=== PATIENT | female | born 1985 | race Caucasian/White ===

== ENCOUNTER 2023-06-22 22:16 | Outpatient (REF) | payer OTHER, SELFPAY ==
[2023-06-28 19:07] LABS: Age Gdln ACOG Testing Note (.); HPV Aptima Negative (Negative); IGP, Aptima HPV, rfx 16/18,45 Note (.)
== END 2023-06-22 22:17 | disposition home or self-care (01) ==
LOC: LAB 22:16
PROVIDERS: Visit Provider Physician Assistant
DX: Z01.419 Encounter for gynecological examination (general) (routine) without abnormal findings (principal)
CPT/HCPCS: 87624; G0145

== ENCOUNTER 2023-07-06 09:00 | Outpatient (OUT) | payer OTHER, SELFPAY ==
--- NOTE | 2023-07-06 09:01 | US_ITS ---
The [address] [address] Patient Name: MARIA FERNANDA GONZALEZ MRN: [id number] date: 1985 Sex: F Assigned Patient Location: [facility] Current Patient Location: [facility] Accession/Order Number: [id number] Exam Date: 07/06/2023 09:02 Report Date: 07/06/2023 10:12 At the request of: TAMIKO PINEDA Procedure: US pelvis w/ transvaginal EXAMINATION: US pelvis w/ transvaginal HISTORY: MENORRHAGIA COMPARISON: No relevant comparison available. FINDINGS: Transabdominal and transvaginal images The uterus is normal in size measuring 8.7 x 4.0 x 5.7 cm. Anteverted, anteflexed. Identified in the left fundal myometrium is a 1.8 x 1.5 x 1.0 cm area of hypoechogenicity Endometrium measures 4 mm, normal. Area of hypoechogenicity in the cervix measuring 0.9 cm, avascular, a cyst is favored. The right ovary is normal measuring 2.4 x 1.7 x 2.7 cm. Normal color and Doppler flow. The left ovary is normal measuring 2.6 x 2.0 x 1.8 cm. Normal color and Doppler flow. No free fluid US/US pelvis w/ transvaginal IMPRESSION: 1.8 cm posterior myometrial mass. A fibroid is favored 0.9 cm complex cyst of the cervix No explanation for the patient's menorrhagia Electronically authenticated by: DELBERT CORRALES Date: 07/06/2023 10:12
== END 2023-07-06 09:01 | disposition home or self-care (01) ==
LOC: NOMS 09:00
PROVIDERS: Visit Provider Physician Assistant
DX: N92.1 Excessive and frequent menstruation with irregular cycle (principal); R19.09 Other intra-abdominal and pelvic swelling, mass and lump; N88.8 Other specified noninflammatory disorders of cervix uteri
CPT/HCPCS: 76830; 76856

== ENCOUNTER 2023-07-20 07:05 | Outpatient (OUT) | payer SELFPAY ==
--- OUTSIDE RECORDS SUMMARY | 2023-07-25 07:08 | XMS_ITS ---
Patient Summarization (C-CDA 2.1 CCD) Created on: July 25, 2023 MARIA FERNANDA GONZALEZ : 1985 Sex: Female Author Organization Sample organization Care Team Providers Care Program Proposals Coordinator Name Role Phone TAMIKO PINEDA Attending Unavailable WESLEY SOLIS Attending Unavailable Irma, Wesley Attending Provider [phone] Wesley Solis Attending Unavailable Wesley Solis Admitting Unavailable Encounters Encounter Date Encounter Type Care Provider Facility Start: 07-20-2023 End: 07-20-2023 ambulatory WESLEY SOLIS Not Available Start: 07-20-2023 End: 07-20-2023 Departed Referred Wesley Solis Work Phone: [facility] Start: 06-22-2023 End: 06-22-2023 ambulatory TAMIKO PINEDA Not Available Payers Date Payer Category Payer Self-pay 2020 Private Health Insurance [id number] 1985 Unknown [id number] 2.16.84 [id number] 1985 Unknown [id number] 2.16.84 [id number] Unknown [id number] 2.16.8 [id number] Results Test Name Value Interpretation Reference Range Facil ity Joe 07-20-2023 L Specimen: [id number] Received: 07/21/23 Status: JOCY Ortega Num: [id number] Spec Type: Surgical Subm Dr: Wesley Solis Tissues: A Endometrium - Biopsy (EMBX) Procedures: HE/2, Gross/Micro L4 Age/ Patient Sex Location Account Attending Physician Maria Fernanda Gonzalez 38/F [place] [id number] Wesley Solis SPEC NUM: [id number] RECD: 07/21/23 STATUS: JOCY DE LOS SANTOSFreddy NUM: [id number] BILL: 07/20/23- SUBM DR: Wesley Solis ENTERED: 07/21/23 [facility] DR: Marilynn Huertas SPEC TYPE: Surgical DEPT: JERZY CASTRO ORDERED: HE/2, Gross/Micro L4 ORDERED: HE/2, Gross/Micro L4 Pathological Diagnosis Endometrial biopsy: - No diagnostic tissue identified, see the gross description Gross Description Specimen is labeled endometrial biopsy. No visible specimen. Container is filtered in 1 cassette. CPT Codes 97204 -------- -------- Specimen: [id number] Received: 07/21/23 Status: JOCY Jordna Num: [id number] Spec Type: Surgical Subm Dr: Wesley Solis Tissues: A Endometrium - Biopsy (EMBX) Procedures: HE/2, Gross/Micro L4 -------- Patient: Maria Fernanda Gonzalez [id number] (Continued) -------- Signed (signature on file) Tim Helton MD 07/22/23 1624 Normal [facility] Social History Date Type Detail Facility Start: 1985 Sex Assigned At Female F [facility] Tobacco smoking stat us [facility]IS Unknown if ever smoked [facility] Work Phone: Evaluation note Note Date & Type Note Facility Evaluation note No assessment information availa ble [facility] Work Phone: Summary Purpose Family History No Family History Records FoundNo Family History Records Found Advance Directives No Advanced Directives Records Found Advance Directive Response Recorded Date/ Time Advance Directives No July 20 11:51am Additional Source Comments INFORMATION SOURCE (unrecogn ized section and content) DATE CREATED AUTHOR 07/21/2023 [facility] dical Specialists EPIC DATE CREATED AUTHOR AUTHOR'S KATERIN ATION 07/23/2023 [facility] ysician Group Care Teams (unrecognized sec tion and content) Team Status: Inactive Member Role Status Dates Wesley Solis Attending Provider Active Start: Rajan gonzalez 2023 End: July 20, 2023 Goals (unrecognized section and content) Goals may be documented in a n alternate section FOR RECORDS PERTAINING TO PATIENTS WHO ARE OR HAVE BEEN ENROLLED IN A CHEMICAL DEPENDENCY/SUBSTANCEABUSE PROGRAM, SOME INFORMATION MAY BE OMITTED. This clinical summary was aggregated from multiple sources. Caution should be exercised in using it in the provision of clinical care. This summary normalizes information from multiple sources, and as a consequence, information in this document may materially change the coding, format and clinical context of patient data. In addition, data may be omitted in some cases. CLINICAL DECISIONS SHOULD BE BASED ON THE PRIMARY CLINICAL RECORDS. [facility] [employer] [facility]. provides no warranty or guarantee of the accuracy or completeness of information in this document.
== END 2023-07-20 07:06 ==
LOC: LAB 07-25 07:06
PROVIDERS: Visit Provider Obstetrics & Gynecology
DX: N92.0 Excessive and frequent menstruation with regular cycle (principal)
CPT/HCPCS: 88305

== ENCOUNTER 2023-08-10 09:02 | Outpatient (OUT) | payer OTHER, SELFPAY ==
--- OUTSIDE RECORDS SUMMARY | 2023-08-10 09:07 | XMS_ITS | CCD ---
Author Organization [facility] CliniSyct Care Team Providers Care Manager Of Training And Development Name Role Phone TAMIKO PINEDA Attending Unavailable WESLEY SOLIS Attending Unavailable Wesley Solis Attending Provider Wesley Solis Attending Unavailable Wesley Solis Admitting Unavailable Results Test Name Value Interpretation Reference Range Facil ity Joe 07-20-2023 L Specimen: [id number] Received: 07/21/23 Status: JOCY Arriaza Num: [id number] Spec Type: Surgical Subm Dr: Wesley Solis Tissues: A Endometrium - Biopsy (EMBX) Procedures: HE/2, Gross/Micro L4 Age/ Patient Sex Location Account Attending Physician Maria Fernanda Gonzalez 38/F [place] [id number] Wesley Solis SPEC NUM: [id number] RECD: 07/21/23 STATUS: JOCY ARRIAZA NUM: [id number] BILL: 07/20/23- SUBM DR: Wesley Solis ENTERED: 07/21/23 [facility] : [facility] SPEC TYPE: Surgical DEPT: JERZY CASTRO ORDERED: HE/2, Gross/Micro L4 ORDERED: HE/2, Gross/Micro L4 Pathological Diagnosis Endometrial biopsy: - No diagnostic tissue identified, see the gross description Gross Description Specimen is labeled endometrial biopsy. No visible specimen. Container is filtered in 1 cassette. CPT Codes 19956 -------- -------- Specimen: [id number] Received: 07/21/23-1237 Status: JOCY Arriaza Num: [id number] Spec Type: Surgical Subm Dr: Wesley Solis Tissues: A Endometrium - Biopsy (EMBX) Procedures: HE/2, Gross/Micro L4 -------- Patient: Maria Fernanda Gonzalez [id number] (Continued) -------- Signed (signature on file) Tim Helton MD 07/22/23 1624 Normal [facility] Encounters Encounter Date Encounter Type Care Provider Facility Start: 07-20-2023 End: 07-20-2023 ambulatory WESLEY SOLIS Not Available Start: 07-20-2023 End: 07-20-2023 Departed Referred Wesley Solis Work Phone: [facility] Start: 06-22-2023 End: 06-22-2023 ambulatory TAMIKO PINEDA Not Available Payers Date Payer Category Payer Self-pay 2020 Private Health Insurance [id number] 1985 Unknown [id number] 2.16.84 [id number] 1985 Unknown [id number] 2.16.84 [id number] Unknown [id number] 2.16.8 [id number] Social History Date Type Detail Facility [facility] Work Phone: Start: 1985 Sex Assigned At Female F [facility] Evaluation note Note Date & Type Note Facility Evaluation note No assessment information availa ble [facility] Work Phone: Summary Purpose Family History No Family History Records FoundNo Family History Records Found Advance Directives No Advanced Directives Records Found Advance Directive Response Recorded Date/ Time Advance Directives No July 20 11:51am Additional Source Comments INFORMATION SOURCE (unrecogn ized section and content) DATE CREATED AUTHOR 07/21/2023 [facility] dical Specialists EPIC DATE CREATED AUTHOR AUTHOR'S ORGANIZ ATION 07/23/2023 [facility] ysician Group Care Teams (unrecognized sec tion [...] BE BASED ON THE PRIMARY CLINICAL RECORDS. [employer] [facility]. provides no warranty or guarantee of the accuracy or completeness of information in this document.
== END 2023-08-10 09:03 | disposition home or self-care (01) ==
LOC: PST 09:03
PROVIDERS: Visit Provider Obstetrics & Gynecology
DX: Z01.818 Encounter for other preprocedural examination (principal); Z30.2 Encounter for sterilization; N92.1 Excessive and frequent menstruation with irregular cycle; R10.2 Pelvic and perineal pain; N93.9 Abnormal uterine and vaginal bleeding, unspecified

== ENCOUNTER 2023-08-19 08:09 | Day surgery (SDC) | payer OTHER, SELFPAY ==
[2023-08-10 09:12] VITALS: BP 112/74; PULSE 95; TEMP 36.3; O2SAT 96; BMI 28.0
[2023-08-19] VITALS (10 sets, daily range): BP systolic 116–135; BP diastolic 71–88; PULSE 59–99; TEMP 36.3–36.8; O2SAT 96–100; BMI 28.0
--- OUTSIDE RECORDS SUMMARY | 2023-08-19 08:13 | XMS_ITS | CCD ---
Author Organization [facility] CliniSyin Care Team Providers Care Transportation Department Head Name Role Phone TAMIKO PINEDA Attending Unavailable WESLEY SOLIS Attending Unavailable Wesley Solis Attending Provider [phone] Wesley Solis Attending Unavailable Wesley Solis Admitting Unavailable Results Test Name Value Interpretation Reference Range Facil ity Joe 07-20-2023 L Specimen: [id number] Received: 07/21/23 Status: JOCY Arriaza Num: [id number] Spec Type: Surgical Subm Dr: Wesley Solis Tissues: A Endometrium - Biopsy (EMBX) Procedures: HE/2, Gross/Micro L4 Age/ Patient Sex Location Account Attending Physician Maria Fernanda Gonzalez 38/F [place] [id number] Wesley Solis SPEC NUM: [id number] RECD: 07/21/23 STATUS: JOCY ARRIAZA NUM: [id number] BILL: 07/20/23- SUBM DR: Wesley Solis ENTERED: 07/21/23 [facility] : [facility] SPEC TYPE: Surgical DEPT: JERZY CASTRO ORDERED: HE/2, Gross/Micro L4 ORDERED: HE/2, Gross/Micro L4 Pathological Diagnosis Endometrial biopsy: - No diagnostic tissue identified, see the gross description Gross Description Specimen is labeled endometrial biopsy. No visible specimen. Container is filtered in 1 cassette. CPT Codes 29631 -------- -------- Specimen: [id number] Received: 07/21/23-1237 Status: JOCY Arriaza Num: [id number] Spec Type: Surgical Subm Dr: Wesley Solis Tissues: A Endometrium - Biopsy (EMBX) Procedures: HE/2, Gross/Micro L4 -------- Patient: Maria Fernanda Gonzalez [id number] (Continued) -------- Signed (signature on file) Tim Helton MD 07/22/23 1624 Normal [facility] Encounters Encounter Date Encounter Type Care Provider Facility Start: 07-20-2023 End: 07-20-2023 ambulatory WESLEY SOLIS Not Available Start: 07-20-2023 End: 07-20-2023 Departed Referred Wesley Solis Work Phone: [facility] Start: 06-22-2023 End: 06-22-2023 ambulatory TAMIKO PINEDA Not Available Payers Date Payer Category Payer Self-pay 2020 Private Health Insurance [id number] 1985 Unknown [id number] 2.16.84 [id number] 1985 Unknown [id number] 2.16.84 [id number] Unknown [id number] 2.16.8 [id number] Social History Date Type Detail Facility Tobacco smoking stat [facility] Unknown if ever smoked [facility] Work Phone: Start: 1985 Sex Assigned At Female F [facility] Evaluation note Note Date & Type Note Facility Evaluation note No assessment information availa ble [facility] Work Phone: Summary Purpose Family History No Family History Records FoundNo Family History Records Found Advance Directives No Advanced Directives Records Found Advance Directive Response Recorded Date/ Time Advance Directives No July 20 11:51am Additional Source Comments INFORMATION SOURCE (unrecogn ized section and content) DATE CREATED AUTHOR 07/21/2023 [facility] dical Specialists EPIC DATE CREATED AUTHOR AUTHOR'S ORGANIZ ATION 07/23/2023 The [facility] ysician Group Care Teams (unrecognized sec tion [...] BE BASED ON THE PRIMARY CLINICAL RECORDS. [employer] [facility]. provides no warranty or guarantee of the accuracy or completeness of information in this document.
[2023-08-19 08:19] LABS: Basophils Absolute Auto 0.1 10^3/uL (0.0-0.1); Basophils Percent Auto 0.8 % (0.2-2.0); Eosinophils Absolute Auto 0.2 10^3/uL (0.0-0.7); Eosinophils Percent Auto 2.1 % (0.9-7.0); Hematocrit 40.4 % (36.0-48.0); Hemoglobin 12.8 g/dL (12.0-16.0); Immature Granulocytes Abs Auto 0.03 10^3/uL (0.00-0.03); Immature Granulocytes Pct Auto 0.3 % (0.0-0.5); Lymphocytes Absolute Auto 2.3 10^3/uL (1.2-3.8); Mean Corpuscular HGB Conc 31.7 g/dL (29.9-35.2); Mean Corpuscular Hemoglobin 26.6 pg (26.7-34.0); Mean Corpuscular Volume 83.8 fL (81.0-99.0); Mean Platelet Volume 9.4 fL (9.5-13.5); Monocytes Absolute Auto 1.1 10^3/uL (0.3-0.8); Monocytes Percent Auto 12.6 % (1.7-12.0); Neutrophils Absolute Auto 4.9 10^3/uL (1.4-6.5); Neutrophils Percent Auto 57.2 % (43.0-75.0); Platelet Count 326 10^3/uL (150-450); Red Blood Count 4.82 10^6/uL (4.20-5.40); Red Cell Distribution Width 12.9 % (11.0-15.0); White Blood Count 8.6 10^3/uL (4.0-11.0)
[2023-08-19 08:41] LABS: HCG Quantitative <1 mIU/mL
[2023-08-19] MEDS: LACTATED RINGER'S SOLUTION 1,000 ML 50 ML IV ×2 (08:49→10:42)
--- NOTE | 2023-08-19 10:41 | P.ON_ITS ---
Brief Operative Note Date of procedure: 08/19/23 Pre-op diagnosis general: menorrhagia, desires permanent sterilization Post-op diagnosis: other (fundal uterine fibroid approximately 3cm in size) Procedure: NAME OF PROCEDURE: Laparoscopic bilateral salpingectomy, with Brooklyn endometrial ablation with hysteroscopy , endometrial bx performed prior to ablation using a pipette. PROCEDURE: The patient was taken back to the OR where she was prepped and draped in the normal sterile fashion after being placed in the dorsal lithotomy position, after being placed under general anesthesia without difficulty. a weighted speculum was then placed into the vagina. Pap and endometrial bx were performed without difficultyThe anterior lip was grasped with a single tooth tenaculum. The patient was then sounded to approximatley 9cm. The patient was gently sounded using Hegar dilators and the hysteroscope was passed through the cervix into the uterus where both ostia were seen. No gross evidence of polyps, fibroids or malignancy. The cervical length was noted to be 4cm. The Brooklyn ablation apparatus was set to approximately 5cm in length. This was placed in through the cervix and into the uterus. After the seal was tested, at that time the total ablation of 120 seconds was performed with the Brooklyn without difficulty. All instruments were removed from the vagina. Pipette was used to obtain bx of endometrial tissue A wet sponge stick was placed into the patient's vagina. Attention was then turned to the patient's abdomen, where a scalpel was used to make a small infraumbilical incision. The S retractors were then used to dissect the underlying layers until the fascia could be seen. The fascia was then grasped with Lilia clamps and tented up. A knife was then used to make a small incision to the fascia. The muscle was identified, at that time two sutures of #0 Vicryl on a GI needle was then used and placed through the fascia. The peritoneum was then identified and entered bluntly. The 10-4 Chi was then placed into the patient's abdomen. This was confirmed with direct visualization of the bowel, using the laparoscope. The patient's abdomen was then insufflated using approximately 4 liters of CO2 gas. Survey of the patient's abdomen demonstrated normal appearing ovaries, uterus and tubes. A second port was then placed laterally after incision was made in the skin under direct visualization. The patient's tube on the patient's right side was identified. Then the filschie clip was placed on the ampullar region of the tube.? Excellent hemostasis was noted. ?This was performed on the contralateral sideas well. The lateral ports were then moved under direct visualization with excellent hemostasis. The abdomen was deinsufflated. All instruments were removed from the patient's abd omen. The fascia was closed using the #0 Vicryl on GI needle. The skin was closed using 4-0 Vicryl subcuticularly. All instruments were removed from the patient's vagina as well. The patient was taken out of the dorsal lithotomy position and placed in the supine position and taken to recovery in stable condition. Sponge, lap and needle counts were correct x2. ??? Anesthesia: JORGE Surgeon: Rey Solis Audio Visual Coordinator: Safia Mena Estimated blood loss (mL): 5 Pathology: other (endometrial currettings) Condition: stable Disposition: PACU Urinary Catheter Management Urinary Catheter Management Urethral: Cath placed during this visit: no
--- NOTE | 2023-08-19 11:58 | PC.NURSE ---
Up to bathroom and voids clear yellow; peripad dry
== END 2023-08-19 12:00 | disposition home or self-care (01) ==
PROVIDERS: Visit Provider Obstetrics & Gynecology
PROC: (CPT 851; principal; 2023-08-19 09:35)
DX: Z30.2 Encounter for sterilization (principal); N92.1 Excessive and frequent menstruation with irregular cycle; R10.2 Pelvic and perineal pain; N93.9 Abnormal uterine and vaginal bleeding, unspecified
CPT/HCPCS: 58100; 58563; 58671; 36415; 84702; 85025; 88305; J1100; J1885; J2250; J2405; J2704; J2710; J3010

== ENCOUNTER 2023-11-29 18:25 | Emergency (ER) | payer OTHER, SELFPAY ==
--- OUTSIDE RECORDS SUMMARY | 2023-11-29 18:38 | XMS_ITS | CCD ---
Author Organization [facility] Care Team Providers Care Transportation Security Screener Name Role Phone Wesley Solis Attending Provider Irma, Wesley Admitting Unavailable Irma, Wesley Attending Unavailable Irma, Wesley Attending Unavailable Irma, Wesley Admitting Unavailable EDWIN, TAMIKO Attending Unavailable IRMA, WESLEY Attending Unavailable IRMA, WESLEY Attending Unavailable EDWIN, TAMIKO Attending Unavailable Results Test Name Value Interpretation Reference Range Facil ity Joe 08-19-2023 L Specimen: [id number] Received: 08/19/23 Status: JOCY Arriaza Num: [id number] Spec Type: Surgical Subm Dr: Wesley Solis Tissues: A Endometrium - Curettings (EMC) Procedures: HE/2, Gross/Micro L4 Age/ Patient Sex Location Account Attending Physician Maria Fernanda Gonzalez 38/F [place] [id number] Wesley Solis SPEC NUM: [id number] RECD: 08/19/23 STATUS: JOCY ARRIAZA NUM: [id number] BILL: 08/19/[address]: Wesley Solis ENTERED: 08/19/[address] [facility] [address]: [facility] SPEC TYPE: Surgical DEPT: JERZY CASTRO ORDERED: HE/2, Gross/Micro L4 ORDERED: HE/2, Gross/Micro L4 Pathological Diagnosis Endometrial curettings: -Multiple strips of moderately unevenly developed secretory endometrium of the mid to late phase type, including occasionally noted predecidual stromal changes, otherwise without any hyperplasia or atypia identified Clinical Information Request for sterilization, menorrhagia, abnormal uterine bleeding, pelvic pain. Gross Description Received in formalin labeled with the patient's name, date of and endometrial curettings is a 2.2 x 0.6 x 0.2 cm aggregate of dale-pink tissue admixed with mucus and clotted blood, entirely submitted in A1. CPT Codes 58530 ---- ---- Specimen: [id number] Received: 08/19/23 Status: JOCY Arriaza Num: [id number] Spec Type: Surgical Subm Dr: Wesley Solis Tissues: A Endometrium - Curettings (EMC) Procedures: Javier MCKEON/Arcenio L4 ---- Patient: Maria Fernanda Gonzalez [id number] (Continued) ---- Signed (signature on file) Robyn Hinton MD 08/22/232021 Normal [facility] Joe 07-20-2023 L Specimen: [id number] Received: 07/21/23 Status: JOCY Shawsteven Num: [id number] Spec Type: Surgical Subm Dr: Wesley Solis Tissues: A Endometrium - Biopsy (EMBX) Procedures: HE/2, Gross/Micro L4 Age/ Patient Sex Location Account Attending Physician PitoMaria Fernanda 38/F [place] [id number] Wesley Solis SPEC NUM: [id number] RECD: 07/21/23 STATUS: JOCY SOFIYA NUM: [id number] BILL: 07/20/23 DR: Wesley Solis ENTERED: 07/21/[address] [facility] [address]: [facility],Marilynn SPEC TYPE: Surgical DEPT: JERZY CASTRO ORDERED: HE/2, Gross/Micro L4 ORDERED: HE/2, Gross/Micro L4 Pathological Diagnosis Endometrial biopsy: - No diagnostic tissue identified, see the gross description Gross Description Specimen is labeled endometrial biopsy. No visible specimen. Container is filtered in 1 cassette. CPT Codes 02171 ---- ---- Specimen: [id number] Received: 07/21/23 Status: JOCY Arriaza Num: [id number] Spec Type: Surgical Subm Dr: Wesley Solis Tissues: A Endometrium - Biopsy (EMBX) Procedures: HE/2, Javier/Arcenio L4 ---- Patient: Maria Fernanda Gonzalez [id number] (Continued) ---- Signed (signature on file) Tim Helton MD 07/22/23 1624 [place]ick[place] [facility] Encounters Encounter Date Encounter Type Care Provider Facility Start: 09-08-2023 End: 09-08-2023 ambulatory TAMIKO PINEDA Not Available Start: 08-31-2023 End: 08-31-2023 ambulatory WESLEY IRMA Not Available Start: 08-19-2023 End: 08-19-2023 ambulatory Wesley Irma Facility:[facility] Start: 07-20-2023 End: 07-20-2023 ambulatory Wesley Irma [facility] Work Phone: Start: 07-20-2023 End: 07-20-2023 Departed Referred Wesley Solis Work Phone: [facility] Start: 06-22-2023 End: 06-22-2023 ambulatory TAMIKO PINEDA Not Available Payers Date Payer Category Payer Self-pay 2020 Private Health Insurance [id number] 1985 Unknown [id number] 2.16.84 [id number] 1985 Unknown [id number] 2.16.84 [id number] 1985 Unknown [id number] 2.16.84 [id number] 1985 Unknown [id number] 2.16.84 [id number] Unknown [id number] 2.16.8 [id number] Unknown [id number] 2.16.8 [id number] Social History Date Type Detail Facility Tobacco smoking stat [facility] Unknown if ever smoked [facility] Work Phone: Start: 1985 Sex Assigned At Female F [facility] Evaluation note Note Date & Type Note Facility Evaluation note No assessment information availa ble [facility] Work Phone: Advance Directives No Advanced Directives Records Found Advance Directive Response Recorded Date/ Time Advance Directives No July 20 11:51am Summary Purpose Family History No Family History Records FoundNo Family History Records Found Additional Source Comments Care Teams (unrecognized sec tion and content) Team Status: Inactive Member Role Status Dates Wesley Solis Attending Provider Active Start: Rajan gonzalez 2023 End: July 20, 2023 Goals (unrecognized section and content) Goals may be documented in a n alternate section INFORMATION SOURCE (unrecogn ized section and content) DATE CREATED AUTHOR 08/23/2023 [facility] DATE CREATED AUTHOR AUTHOR'S ORGANIZ ATION 09/12/2023 [facility] dical Specialists EPIC FOR RECORDS PERTAINING TO PATIENTS WHO ARE [...] BE BASED ON THE PRIMARY CLINICAL RECORDS. [facility]. provides no warranty or guarantee of the accuracy or completeness of information in this document.
[2023-11-29 18:41] VITALS: BP 160/100; PULSE 99; O2SAT 100; BMI 28.4
--- NOTE | 2023-11-29 19:10 | ECG_ITS ---
The [facility] Test Date: 2023-11-29 Pat Name: MARIA FERNANDA GONZALEZ Department: Room: - Gender: Female Senior Vice President & General Counsel: : 1985 Requested By: [id number] Order Number: [id number] Reading MD: GABRIELA DE LUNA Measurements Intervals [place] Rate: 112 P: 63 [place]: 162 QRS: 75 QRSD: 80 T: 60 QT: 332 QTc: 398 Interpretive Statements 1120 Sinus tachycardia 4068 Nonspecific Twave abnormality 0102 ARTIFACT PRESENT 9140 abnormal rhythm ECG No previous ECG available for comparison Electronically Signed On 11-29-2023 22:48:15 EDT by GABRIELA DE LUNA
[2023-11-29 19:54] VITALS: PULSE 109
[2023-11-29 20:36] LABS: Basophils Percent Auto 0.3 % (0.2-2.0); Eosinophils Absolute Auto 0.1 10^3/uL (0.0-0.7); Eosinophils Percent Auto 0.4 % (0.9-7.0); Hematocrit 37.5 % (36.0-48.0); Hemoglobin 12.3 g/dL (12.0-16.0); Immature Granulocytes Pct Auto 0.6 % (0.0-0.5); Lymphocytes Absolute Auto 2.6 10^3/uL (1.2-3.8); Lymphocytes Percent Auto 16.2 % (20.5-60.0); Mean Corpuscular HGB Conc 32.8 g/dL (29.9-35.2); Mean Corpuscular Hemoglobin 27.7 pg (26.7-34.0); Mean Corpuscular Volume 84.5 fL (81.0-99.0); Mean Platelet Volume 9.7 fL (9.5-13.5); Monocytes Absolute Auto 1.1 10^3/uL (0.3-0.8); Monocytes Percent Auto 6.9 % (1.7-12.0); Neutrophils Absolute Auto 12.1 10^3/uL (1.4-6.5); Neutrophils Percent Auto 75.6 % (43.0-75.0); Platelet Count 415 10^3/uL (150-450); Red Blood Count 4.44 10^6/uL (4.20-5.40); Red Cell Distribution Width 13.2 % (11.0-15.0)
[2023-11-29 20:45] LABS: Bilirubin Urine NEGATIVE (NEGATIVE); Blood Urine MODERATE (NEGATIVE); Clarity Urine CLEAR (CLEAR); Color Urine LT. YELLOW (YELLOW); Glucose Urine UA NEGATIVE (NEGATIVE); Ketones Urine NEGATIVE (NEGATIVE); Leukocyte Esterase Urine TRACE (NEGATIVE); Nitrite Urine NEGATIVE (NEGATIVE); Protein Urine NEGATIVE (NEG/TRACE); Specific Gravity Urine <=1.005 (1.005-1.025); Urobilinogen Urine 0.2 EU/dL (0.2-1.0); pH Urine 6.5 (5.0-9.0)
--- NOTE | 2023-11-29 20:47 | ED.PSYCH1 ---
HPI - Psych General Chief Complaint: Psychiatric Symptoms Stated Complaint: Other Time Seen by Provider: 11/29/23 19:10 Source: Reports patient Mode of arrival: walk-in Limitations: Reports no limitations History of Present Illness HPI Narrative: This 38-year-old female presents for evaluation and concerned that she has been invaded by a witch that put a black poison on the right side of her chest. She states that she has been invaded by this witch and there is a pendulum swinging in her chest. She states that she is also urinating black liquid because the poison is coming out of her. The patient states she lives at home alone and is a java security architectit security administrator. She has not recently been sleeping and cannot remember the last time she ate. She denies any drug use. She explained to the nurse doing her intake that she was feeling like shooting herself earlier to make the thoughts that she was having go away. She exhibits rapid pressured speech, shinto preoccupation, tangential thought process. The patient's friend who she has been friends with since high school met her at the emergency department after she has been in touch with him frequently over the course of the past several days. He is very concerned for her. He states that she is shinto but has never been known to be consumed by religiosity. She texted him earlier that she was afraid for her life. She believes that she has been infiltrated by an evil spirit/witch. Related Data Previous Rx's ?Medication ?Instructions ?Recorded hydrocodone 5 mg-acetaminophen 325 1 tab PO Q4H PRN pain 4 days #16 08/19/23 mg tablet tabs ibuprofen 800 mg tablet 800 mg PO Q8H PRN pain 14 days #40 08/19/23 tabs Allergies Allergy/AdvReac Type Severity Reaction Status Date / Time No Known Drug Allergies Allergy Verified 08/10/23 09:17 Review of Systems ROS Status of ROS 10 or more systems reviewed and unremarkable except as noted in history and below [facility] Medical History (Updated 11/30/23 @ 02:35 by Jessica Faust MD) History of ovarian cyst ?Z87.42 - Personal history of other diseases of the female genital tract (ICD-10) Endometriosis ?N80.9 - Endometriosis, unspecified (ICD-10) Menorrhagia ?N92.0 - Excessive and frequent menstruation with regular cycle (ICD-10) Pelvic pain ?R10.2 - Pelvic and perineal pain (ICD-10) Abnormal uterine bleeding ?N93.9 - Abnormal uterine and vaginal bleeding, unspecified (ICD-10) Surgical History (Updated 08/19/23 @ 08:30 by Karen Storey) Hx of adenoidectomy ?Z90.89 - Acquired absence of other organs (ICD-10) H/O right knee surgery ?Z98.890 - Other specified postprocedural states (ICD-10) Family History (Updated 08/10/23 @ 09:25 by Faby Douglas, ROBIN) Other Family history of cancer Family history of hypertension Social History (Updated 08/10/23 @ 09:22 by Faby Douglas, ROBIN) Within the past year, how often did you have a drink containing alcohol: monthly or less Smoking status: Never smoker Second hand tobacco smoke exposure: No Non-prescribed substance use: denies use 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 Highest level of school completed/degree received: Bachelor's degree Little interest or pleasure in doing things: not at all Feeling down, depressed, or hopeless: not at all Exam Narrative Exam Narrative: Vital signs and Nursing Notes reviewed: General: Awake, alert, oriented, well-appearing anxious female, she is extremely friendly, talkative, no respiratory distress HEENT: Normocephalic atraumatic, mucous membranes are moist and pink, eyes are clear, normal conjunctiva, vision is grossly intact Neck: Supple, no meningeal signs, no anterior or posterior cervical lymphadenopathy Chest: Lungs are clear to auscultation with good air entry, there is no wheezing rhonchi or rales appreciated no accessory muscle use, patient is speaking in complete sentences-no chest wall tenderness to palpation CVS: Regular rate and rhythm S1-S2, no murmurs rubs or gallops, pulses are brisk and equal bilaterally ABD: Soft, nondistended, nontender, no rebound guarding or rigidity, bowel sounds are normal, no pulsatile masses appreciated Extremities: Moving all extremities, no lower extremity tenderness or swelling noted, negative Homans' sign, pulses are brisk and equal bilaterally Skin: Normal in appearance without rash,pallor, petechiae or purpura Neuro: No focal deficits Psych: Scientology preoccupation with the compulsion that she has been poisoned by a witch and has a poisonous pocket on her heart. Flight of ideas, tangential thought process. Decrease sleeping and eating. Constitutional Vital Signs, click to edit/add: Last Vital Signs Pulse 115 H 11/30/23 00:58 Resp 16 11/30/23 00:58 BP 136/93 H 11/30/23 00:58 Pulse Ox 99 11/30/23 00:58 O2 Del Method Room Air 11/29/23 18:41 Course Vital Signs Vital signs: Vital Signs Pulse Rate 99 H 11/29/23 18:41 Respiratory Rate 18 11/29/23 18:41 Blood Pressure 160/100 H 11/29/23 18:41 Pulse Oximetry 100 11/29/23 18:41 Oxygen Delivery Method Room Air 11/29/23 18:41 Pulse Rate 115 H 11/30/23 00:58 Respiratory Rate 16 11/30/23 00:58 Blood Pressure 136/93 H 11/30/23 00:58 Pulse Oximetry 99 11/30/23 00:58 Oxygen Delivery Method Room Air 11/29/23 18:41 MDM - Psych MDM Narrative Medical decision making narrative: This 38-year-old female presents for evaluation of concerns that her body has been invaded by witches who have poisoned her and she has a poison bubble on her heart that is now leaking into her urine. She has been texting her longtime friend who came to the emergency department to support her. He is extremely concerned. She has a history of believing in God but has become excessively shinto with shinto preoccupation, flight of ideas, tangential thinking, at 1 point she told the nurse that she was thinking of killing herself to remove the demons. In the emergency department she was cooperative, she has rapid pressured speech. She admits that she has not been eating or sleeping. She states she works in [employer] at home. She does not have any children or pets at home. She does admit that she has guns at home. Medical clearance labs were ordered after the patient was evaluated. She has a normal EKG. She has a low sodium at 124 and potassium is mildly low at 3. The patient did admit to her friend that she has been drinking water excessively in an attempt to clear her system of the poison that was placed by the witch. An IV was placed and she was given a liter of normal saline and oral potassium. Her urine tox is negative. Alcohol is negative. Aspirin and Tylenol are both normal. CT scan of the brain was negative. White count is mildly elevated at 16 without any sign of infection. She was pink slipped due to her acute psychosis and given a dose of Ativan as she admitted that she was having rapid thoughts, unable to calm down her mind and felt like she was having a panic attack. She has remained hemodynamically stable in the emergency department. [facility] was consulted for psychiatric admission and stabilization. She was pink slipped for acute psychosis. The patient and her friend both spoke to [facility] with [facility] recommendation for hospitalization. She is accepted for transfer to [facility] under the service of Dr Lopez After the ativan, she was able to sleep for several hours and has been to the bathroom several times but remains alert and cooperative. Medical Records Medical records narrative: [place] [address] CT Scan Report Signed Patient: MARIA FERNANDA GONZALEZ MR#: [id number] : 1985 Acct:[id number] Age/Sex: 38 / F ADM Date: 11/29/23 Loc: ER Attending Dr: Ordering Physician: Jessica Faust Date of Service: 11/29/23 Procedure(s): CT head/brain wo con Accession Number(s): [id number] cc: Physician,Non-Staff M.D.~ The [place] [address] Patient Name: MARIA FERNANDA GONZALEZ MRN: [id number] date: 1985 Sex: F Assigned Patient Location: ER Current Patient Location: ER Accession/Order Number: [id number] Exam Date: 11/29/2023 21:42 Report Date: 11/29/2023 22:27 At the request of: JESSICA FAUST Procedure: CT head/brain wo con INDICATION: 38 years old; Female. Change in mental status. Technologist notes: Patient thinks she has poison in her because there are demonic spirits and witches that entered her chest and now black is coming out of her . TECHNIQUE: CT Head (ax/cor/sag reformats). Ionizing radiation dose reduced via iterative reconstruction/FBP blend and body size kV/mA adjustment. Comparison: None FINDINGS: POSTOPERATIVE CHANGES: None. BRAIN PARENCHYMA: No intraparenchymal or extra-axial hemorrhage. No mass effect. No midline shift or herniation. Normal salinas/white differentiation. VENTRICLES/EXTRA-AXIAL SPACES: Normal for patient's age. A small pineal cyst is noted. SINUSES/MASTOIDS: The sinuses are clear although the maxillary sinuses are not completely included. Mastoids and middle ears are clear. MSK: No displaced or depressed calvarial fracture. OTHER: No hyperdense intraluminal thrombus. CT/CT head/brain wo con IMPRESSION: 1. No acute intracranial abnormality. No hemorrhage or mass effect. Electronically authenticated by: JOSE DIXON Date: 11/29/2023 22:27 Lab Data Attestation: I reviewed the patient's lab results. Labs: Lab Results 11/29/23 11/29/23 Range/Units 20:02 20:18 WBC 16.0 H (4.0-11.0) 10^3/uL RBC 4.44 (4.20-5.40) 10^6/uL Hgb 12.3 (12.0-16.0) g/dL Hct 37.5 (36.0-48.0) % MCV 84.5 (81.0-99.0) fL MCH 27.7 (26.7-34.0) pg MCHC 32.8 (29.9-35.2) g/dL RDW 13.2 (11.0-15.0) % Plt Count 415 (150-450) 10^3/uL MPV 9.7 (9.5-13.5) fL Neut % (Auto) 75.6 H (43.0-75.0) % Lymph % (Auto) 16.2 L (20.5-60.0) % [place] % (Auto) 6.9 (1.7-12.0) % Eos % (Auto) 0.4 L (0.9-7.0) % Baso % (Auto) 0.3 (0.2-2.0) % Neut # (Auto) 12.1 H (1.4-6.5) 10^3/uL Lymph # (Auto) 2.6 (1.2-3.8) 10^3/uL [place] # (Auto) 1.1 H (0.3-0.8) 10^3/uL Eos # (Auto) 0.1 (0.0-0.7) 10^3/uL Baso # (Auto) 0.0 (0.0-0.1) 10^3/uL Abs Immat Gran (auto) 0.10 H (0.00-0.03) 10^3/uL Imm/Tot Granulo (auto) 0.6 H (0.0-0.5) % Sodium 124 L* (136-145) mmol/L Potassium 3.2 L (3.5-5.1) mmol/L Chloride 88 L (98-107) mmol/L Carbon Dioxide 22.7 (21.0-32.0) mmol/L Anion Gap 16.5 BUN 3.0 L (7.0-18.0) mg/dL Creatinine 0.81 (0.55-1.02) mg/dL Est GFR ( Amer) >60 (>=60 mL/min/1.73m^2) Est GFR (Non-Af Amer) >60 (>=60 mL/min/1.73m^2) BUN/Creatinine Ratio 3.7 Glucose 112 H (74-106) mg/dL Calcium 9.3 (8.5-10.1) mg/dL Total Bilirubin 0.6 (0.2-1.0) mg/dL AST 14 L (15-37) U/L ALT 19 (14-59) U/L Alkaline Phosphatase 110 (46-116) U/L Total Protein 7.4 (6.4-8.2) g/dL Albumin 3.6 (3.4-5.0) g/dL Globulin 3.8 g/dL Albumin/Globulin Ratio 0.9 Urine Color Lt. yellow (YELLOW) Urine Clarity Clear (CLEAR) Urine pH 6.5 (5.0-9.0) Ur Specific [place] <=1.005 A (1.005-1.025) Urine Protein Negative (NEG/TRACE) mg/dL Urine Glucose (UA) Negative (NEGATIVE) mg/dL Urine Ketones Negative (NEGATIVE) mg/dL Urine Occult Blood Moderate A (NEGATIVE) Urine Nitrite Negative (NEGATIVE) Urine Bilirubin Negative (NEGATIVE) Urine Urobilinogen 0.2 (0.2-1.0) EU/dL Ur Leukocyte Esterase Trace A (NEGATIVE) Urine RBC 0-2 (0-2) #/HPF Urine WBC 2-5 A (NONE SEEN) #/HPF Ur Squamous Epith Cells Few A (NONE/RARE) #/LPF Urine Crystals None seen (None Seen) #/HPF Urine Bacteria Trace A (NONE SEEN) #/HPF Urine Casts None seen (NONE SEEN) #/LPF Urine Mucus None seen (NONE SEEN) Salicylates <2.8 (<=19.9) mg/dL Urine Opiates Screen Negative (NEGATIVE) Ur Buprenorphine Scrn Negative (NEGATIVE) Ur Oxycodone Screen Negative (NEGATIVE) Urine Methadone Screen Negative (NEGATIVE) Acetaminophen <2.0 L (10.0-30.0) ug/mL Ur Barbiturates Screen Negative (NEGATIVE) U Tricyclic Antidepress Negative (NEGATIVE) Ur Phencyclidine Scrn Negative (NEGATIVE) Ur Amphetamines Screen Negative (NEGATIVE) U Methamphetamines Scrn Negative (NEGATIVE) U Benzodiazepines Scrn Negative (NEGATIVE) Urine Cocaine Screen Negative (NEGATIVE) U Cannabinoids Screen Negative (NEGATIVE) Ethanol Quant <3 mg/dL ECG Data Attestation: I personally reviewed and interpreted this ECG as follows: (Sinus tachycardia at 112 bpm, nonspecific ST changes, EKG limited by patient movement, no acute ST segment elevation or T wave inversion) Discharge Plan Discharge Chief Complaint: Psychiatric Symptoms Clinical Impression: Acute psychosis, Hyponatremia, Hypokalemia Patient Disposition: [facility] Time of Disposition Decision: 02:34 Condition: Good Mode of Transportation: Mental Health Car Prescriptions / Home Meds: No Action ibuprofen 800 mg tablet 800 mg PO Q8H PRN (Reason: pain) 14 Days Qty: 40 0RF hydrocodone-acetaminophen 5-325 mg tablet 1 tab PO Q4H PRN (Reason: pain) 4 Days Qty: 16 0RF Print Language: Trinidadian Referrals: Physician,Non-Staff, MD [Primary Care Provider] - 1 week
[2023-11-29 20:51] LABS: Alanine Aminotransferase 19 U/L (14-59); Albumin Globulin Ratio 0.9; Albumin Level 3.6 g/dL (3.4-5.0); Alkaline Phosphatase 110 U/L (46-116); Anion Gap 16.5; Aspartate Amino Transferase 14 U/L (15-37); BUN Creatinine Ratio 3.7; Bilirubin Total 0.6 mg/dL (0.2-1.0); Calcium 9.3 mg/dL (8.5-10.1); Carbon Dioxide 22.7 mmol/L (21.0-32.0); Chloride 88 mmol/L (98-107); Estimated GFR (African America >60 (>=60 mL/min/1.73m^2); Estimated GFR (Non-African Ame >60 (>=60 mL/min/1.73m^2); Globulin 3.8 g/dL; Glucose 112 mg/dL (74-106); Potassium 3.2 mmol/L (3.5-5.1); Salicylate <2.8 mg/dL (<=19.9); Total Protein 7.4 g/dL (6.4-8.2)
[2023-11-29 20:54] LABS: Amphetamine Screen Urine NEGATIVE (NEGATIVE); Barbiturates Screen Urine NEGATIVE (NEGATIVE); Benzodiazepines Screen Urine NEGATIVE (NEGATIVE); Buprenorphine Screen Urine NEGATIVE (NEGATIVE); Cannabinoid Screen Urine NEGATIVE (NEGATIVE); Cocaine Screen Urine NEGATIVE (NEGATIVE); Methadone Screen Urine NEGATIVE (NEGATIVE); Methamphetamines Screen Urine NEGATIVE (NEGATIVE); Opiate Screen Urine NEGATIVE (NEGATIVE); Oxycodone Screen Urine NEGATIVE (NEGATIVE); Phencyclidine Screen Urine NEGATIVE (NEGATIVE); Tricyclic Antidepressant Urine NEGATIVE (NEGATIVE)
[2023-11-29 21:08] LABS: Ethanol <3 mg/dL
[2023-11-29 21:10] LABS: Acetaminophen <2.0 ug/mL (10.0-30.0)
[2023-11-29 21:11] LABS: Sodium 124 mmol/L (136-145)
--- NOTE | 2023-11-29 21:22 | CT_ITS ---
The [address] [address] Patient Name: MARIA FERNANDA GONZALEZ MRN: [id number] date: 1985 Sex: F Assigned Patient Location: ER Current Patient Location: ER Accession/Order Number: [id number] Exam Date: 11/29/2023 21:42 Report Date: 11/29/2023 22:27 At the request of: DAVIDSON MARKER Procedure: CT head/brain wo con INDICATION: 38 years old; Female. Change in mental status. Technologist notes: Patient thinks she has poison in her because there are demonic spirits and witches that entered her chest and now black is coming out of her . TECHNIQUE: CT Head (ax/cor/sag reformats). Ionizing radiation dose reduced via iterative reconstruction/FBP blend and body size kV/mA adjustment. Comparison: None FINDINGS: POSTOPERATIVE CHANGES: None. BRAIN PARENCHYMA: No intraparenchymal or extra-axial hemorrhage. No mass effect. No midline shift or herniation. Normal salinas/white differentiation. VENTRICLES/EXTRA-AXIAL SPACES: Normal for patient's age. A small pineal cyst is noted. SINUSES/MASTOIDS: The sinuses are clear although the maxillary sinuses are not completely included. Mastoids and middle ears are clear. MSK: No displaced or depressed calvarial fracture. OTHER: No hyperdense intraluminal thrombus. CT/CT head/brain wo con IMPRESSION: 1. No acute intracranial abnormality. No hemorrhage or mass effect. Electronically authenticated by: JOSE DIXON Date: 11/29/2023 22:27
[2023-11-29 21:24] LABS: Bacteria Urine TRACE #/HPF (NONE SEEN); Cast Seen? NONE SEEN #/LPF (NONE SEEN); Crystals Seen? None Seen #/HPF (None Seen); Mucus Urine NONE SEEN (NONE SEEN); RBC Urine 0-2 #/HPF (0-2); Squamous Epithelial Cell Urine FEW #/LPF (NONE/RARE)
[2023-11-29] MEDS: LORAZEPAM 0.5 MG TABLET 1 MG PO (21:52)
[2023-11-29] MEDS: 0.9 % SODIUM CHLORIDE 1,000 ML 1000 ML IV (21:53)
[2023-11-29] MEDS: POTASSIUM CHLORIDE 10 MEQ ER TABLET 20 MEQ PO (22:22)
[2023-11-30 00:56] VITALS: BP 136/93; O2SAT 99
[2023-11-30 00:58] VITALS: BP 136/93; PULSE 115; O2SAT 99
--- NOTE | 2023-11-30 01:00 | PC.NURSE ---
Patient up to bathroom. She is updated that we are still unsure of plans for possible transfer, she states she wants to go back to sleep. She is aware that her friend left while she was sleeping, she is okay with this. She continues to be very polite and cooperative. Vitals updated at this time.
[2023-11-30 04:44] LABS: Anion Gap 11.7; Calcium 9.7 mg/dL (8.5-10.1); Carbon Dioxide 28.5 mmol/L (21.0-32.0); Chloride 100 mmol/L (98-107); Estimated GFR (African America >60 (>=60 mL/min/1.73m^2); Estimated GFR (Non-African Ame >60 (>=60 mL/min/1.73m^2); Glucose 98 mg/dL (74-106); Potassium 4.2 mmol/L (3.5-5.1); Sodium 136 mmol/L (136-145)
[2023-11-30 04:51] LABS: BUN Creatinine Ratio 6.3
[2023-11-30 07:02] VITALS: BP 147/97; O2SAT 97
[2023-11-30] MEDS: LORAZEPAM 0.5 MG TABLET 1 MG PO (07:53)
[2023-11-30 09:35] VITALS: BP 125/79
== END 2023-11-30 09:44 ==
PROVIDERS: Student in an Organized Health Care Education/Training Program; Emergency Provider Emergency Medicine
DX: F29 Unspecified psychosis not due to a substance or known physiological condition (principal); E87.1 Hypo-osmolality and hyponatremia; E87.6 Hypokalemia
CPT/HCPCS: 36415; 70450; 80048; 80053; 80179; 80307; 80320; 80329; 81001; 85025; 93005; 99285

== ENCOUNTER 2023-12-28 07:00 | Outpatient (OUT) | payer OTHER, SELFPAY ==
--- OUTSIDE RECORDS SUMMARY | 2023-12-28 07:03 | XMS_ITS | CCD ---
Author Organization [facility] Care Team Providers Care Formula Weigher Name Role Phone Wesley Solis Attending Provider [phone] TAMIKO PINEDA Attending Unavailable IRMA, WESLEY Attending Unavailable IRMA, WESLEY Attending Unavailable TAMIKO PINEDA Attending Unavailable Irma, Wesley Attending Unavailable Irma, Wesley Admitting Unavailable Irma, Wesley Admitting Unavailable Irma, Wesley Attending Unavailable Results Test Name Value Interpretation Reference Range Facil ity Joe 08-19-2023 L Specimen: [id number] Received: 08/19/23 Status: JOCY Arriaza Num: [id number] Spec Type: Surgical Subm Dr: Wesley Solis Tissues: A Endometrium - Curettings (EMC) Procedures: HE/2, Gross/Micro L4 Age/ Patient Sex Location Account Attending Physician Maria Fernanda Gonzalez 38/F [facility] [id number] Wesley Solis SPEC NUM: [id number] RECD: 08/19/23 STATUS: JOCY ARRIAZA NUM: [id number] BILL: 08/19/[address]: Wesley Solis ENTERED: 08/19/[address] [facility] DR: Carlos,Lab SPEC TYPE: Surgical DEPT: [...] blood, entirely submitted in A1. CPT Codes 17611 ---- ---- Specimen: [id number] Received: 08/19/23 Status: JOCY Arriaza Num: [id number] Spec Type: Surgical Subm Dr: Wesley Solis Tissues: A Endometrium - Curettings (EMC) Procedures: Javier MCKEON/Arcenio L4 ---- Patient: Maria Fernanda Gonzalez [id number] (Continued) ---- Signed (signature on file) Robyn Hinton MD 08/22/232021 Normal [facility] Joe 07-20-2023 L Specimen: [id number] Received: 07/21/23 Status: JOCY Shawsteven Num: [id number] Spec Type: Surgical Subm Dr: Wesley Solis Tissues: A Endometrium - Biopsy (EMBX) Procedures: HE/2, Gross/Micro L4 Age/ Patient Sex Location Account Attending Physician PitoMaria Fernanda 38/F [facility] [id number] Wesley Solis SPEC NUM: [id number] RECD: 07/21/23 STATUS: JOCY SOFIYA NUM: [id number] BILL: 07/20/23 DR: Wesley Solis ENTERED: 07/21/23 [facility] DR: Carlos,Marilynn SPEC TYPE: Surgical DEPT: JERZY CASTRO ORDERED: HE/2, Gross/Micro L4 ORDERED: HE/2, Gross/Micro L4 Pathological Diagnosis Endometrial biopsy: - No diagnostic tissue identified, see the gross description Gross Description Specimen is labeled endometrial biopsy. No visible specimen. Container is filtered in 1 cassette. CPT Codes 56017 ---- ---- Specimen: [id number] Received: 07/21/23 Status: JOCY Arriaza Num: [id number] Spec Type: Surgical Subm Dr: Wesley Solis Tissues: A Endometrium - Biopsy (EMBX) Procedures: HE/2, Javier/Arcenio L4 ---- Patient: Maria Fernanda Gonzalez [id number] (Continued) ---- Signed (signature on file) Tim Helton MD 07/22/23 1624 [place] [facility] Encounters Encounter Date Encounter Type Care Provider Facility Start: 09-08-2023 End: 09-08-2023 ambulatory TAMIKO PINEDA Not Available Start: 08-31-2023 End: 08-31-2023 ambulatory WESLEY IRMA Not Available Start: 08-19-2023 End: 08-19-2023 ambulatory Wesley Rima Facility:[facility] Start: 07-20-2023 End: 07-20-2023 ambulatory WESLEY IRMA [facility] Work Phone: Start: 07-20-2023 End: 07-20-2023 Departed Referred Wesley Solis Work Phone: [facility] Start: 06-22-2023 End: 06-22-2023 ambulatory TAMIKO PINEDA Not Available Payers Date Payer Category Payer Self-pay 2020 Private Health Insurance [id number] 1985 Unknown [id number] [id number] [id number] 1985 Unknown [id number] 2.16.84 [id number] 1985 Unknown [id number] 2.16.84 [id number] 1985 Unknown [id number] 2.16.84 [id number] Unknown [id number] 2.16.8 [id number] Unknown [id number] 2.16.8 [id number] Social History Date Type Detail Facility Tobacco smoking stat [facility] Unknown if ever smoked [facility] Work Phone: Start: 1985 Sex Assigned At Female F [facility] Evaluation note Note Date & Type Note Facility Evaluation note No assessment information availa ble [facility] Work Phone: Advance Directives No Advanced [...] ized section and content) DATE CREATED AUTHOR 09/12/2023 [facility] DATE CREATED AUTHOR AUTHOR'S ORGANIZ ATION 12/02/2023 [facility] ysician Group FOR RECORDS PERTAINING TO PATIENTS WHO ARE [...] BE BASED ON THE PRIMARY CLINICAL RECORDS. [facility] Delivered [facility]. provides no warranty or guarantee of the accuracy or completeness of information in this document.
--- NOTE | 2023-12-28 07:04 | US_ITS ---
The [address] [address] Patient Name: MARIA FERNANDA GONZALEZ MRN: [id number] date: 1985 Sex: F Assigned Patient Location: US Current Patient Location: Accession/Order Number: [id number] Exam Date: 12/28/2023 07:05 Report Date: 12/28/2023 09:35 At the request of: CASSIE MARTINES Procedure: US pelvis EXAMINATION: US pelvis HISTORY: pelvic pain COMPARISON: No relevant comparison available. FINDINGS: Transabdominal images The uterus is normal in size and contour measuring 8.6 x 6.2 x 3.7 cm. 1.8 cm area of hypoechogenicity posterior uterine myometrium, a fibroid is favored. The endometrium measures 2.7 mm, normal. The right ovary measures 4.1 x 2.8 x 1.6 cm. Normal color Doppler flow. Area of anechoic echogenicity measuring 1.7 cm, simple cyst. The left ovary measures 4.1 x 2.0 x 2.6 cm. Normal color Doppler flow. No free fluid US/US pelvis IMPRESSION: 1.8 cm posterior myometrial mass, a uterine fibroid is favored Electronically authenticated by: DELBERT CORRALES Date: 12/28/2023 09:35
--- NOTE | 2023-12-28 07:10 | US_ITS ---
The [address] [address] Patient Name: MARIA FERNANDA GONZALEZ MRN: [id number] date: 1985 Sex: F Assigned Patient Location: Current Patient Location: Accession/Order Number: [id number] Exam Date: 12/28/2023 07:11 Report Date: 12/28/2023 09:36 At the request of: CASSIE MARTINES Procedure: US abdomen complete EXAMINATION: US abdomen complete HISTORY: Abdominal pain COMPARISON: No relevant comparison available. FINDINGS: The liver is normal in size, contour and echotexture. No focal hepatic mass. Hepatopedal flow in the main portal vein The gallbladder is normal. The wall measures 1.6 mm. Negative sonographic Garcia sign. The pancreas is normal The right kidney is normal measuring 13.0 x 5.1 x 5.2 cm. 6 mm nonobstructing nephrolith The left kidney is normal measuring 11.4 x 5.1 x 5.6 cm The visualized IVC and aorta are normal The spleen is normal No ascites US/US abdomen complete IMPRESSION: No acute abnormality Electronically authenticated by: DELBERT CORRALES Date: 12/28/2023 09:36
== END 2023-12-28 07:01 | disposition home or self-care (01) ==
LOC: US 07:00
PROVIDERS: PCP Nurse Practitioner Family; Visit Provider Nurse Practitioner Family
DX: R10.30 Lower abdominal pain, unspecified (principal); R10.2 Pelvic and perineal pain; N85.9 Noninflammatory disorder of uterus, unspecified
CPT/HCPCS: 76700; 76856

== ENCOUNTER 2023-12-30 13:44 | Outpatient (OUT) | payer OTHER, SELFPAY ==
--- NOTE | 2023-12-30 13:47 | MM_ITS ---
Patient Name: MARIA FERNANDA GONZALEZ MR#: [id number] : 1985 Exam Date: 12/30/2023 Ordering Doctor: CASSIE MARTINES CNP RADIOLOGY REPORT PROCEDURE: MM TOMOSYNTHESIS DIAGNOSTIC BI COMPARISON: None. INDICATIONS: Breast Pain Calculator Name NCI Breast Cancer Risk Assessment Tool 5 Year Breast Cancer Risk 0.60% Lifetime Breast Cancer Risk 12.20% Personal Breast Cancer No Personal Ovarian Cancer No Treatments None Family Cancers None LOCATION: The [facility] BREAST COMPOSITION: The breasts are heterogeneously dense,which may obscure small masses. FINDINGS: DIAGNOSTIC CATEGORY 1--NEGATIVE. RIGHT BREAST: No significant suspicious finding. LEFT BREAST: No significant suspicious finding. RECOMMENDATIONS: ROUTINE MAMMOGRAM AND CLINICAL EVALUATION IN 12 MONTHS. PLEASE NOTE: A NORMAL MAMMOGRAM DOES NOT EXCLUDE THE POSSIBILITY OF BREAST CANCER. A CLINICALLY SUSPICIOUS PALPABLE LUMP SHOULD BE BIOPSIED. Dictated by: Ac Tello M.D. on 12/30/2023 at 14:09 Approved by: Ac Tello M.D. on 12/30/2023 at 14:13
--- OUTSIDE RECORDS SUMMARY | 2023-12-30 13:59 | XMS_ITS | CCD ---
Author Organization [facility] Care Team Providers Care Shirt Folder Name Role Phone Wesley Solis Attending Provider TAMIKO PINEDA Attending Unavailable IRMA, WESLEY Attending Unavailable IRMA, WESLEY Attending Unavailable TAMIKO PINEDA Attending Unavailable Irma, Wesley Attending Unavailable Irma, Wesley Admitting Unavailable Rima, Wesley Admitting Unavailable Irma, Wesley Attending Unavailable Results Test Name Value Interpretation Reference Range Facil ity Joe 08-19-2023 L Specimen: [id number] Received: 08/19/23 Status: JOCY Arriaza Num: [id number] Spec Type: Surgical Subm Dr: Wesley Solis Tissues: A Endometrium - Curettings (EMC) Procedures: HE/2, Gross/Micro L4 Age/ Patient Sex Location Account Attending Physician Maria Fernanda Gonzalez 38/F [place] [id number] Wesley Solis SPEC NUM: [id number] RECD: 08/19/23 STATUS: JOCY ARRIAZA NUM: [id number] BILL: 08/19/[address]: Wesley Solis ENTERED: 08/19/23 [facility] DR: Carlos,Lab SPEC TYPE: [...] blood, entirely submitted in A1. CPT Codes 54017 ---- ---- Specimen: [id number] Received: 08/19/23 Status: JOCY Arriaza Num: [id number] Spec Type: Surgical Subm Dr: Wesley Solis Tissues: A Endometrium - Curettings (EMC) Procedures: Javier MCKEON/Arcenio L4 ---- Patient: Maria Fernanda Gonzalez [id number] (Continued) ---- Signed (signature on file) Robyn Hinton MD 08/22/232021 Normal [facility] Joe 07-20-2023 L Specimen: [id number] Received: 07/21/23 Status: JOCY Shawsteven Num: [id number] Spec Type: Surgical Subm Dr: Wesley Solis Tissues: A Endometrium - Biopsy (EMBX) Procedures: HE/2, Gross/Micro L4 Age/ Patient Sex Location Account Attending Physician PitoMaria Fernanda 38/F [place] [id number] Wesley Solis SPEC NUM: [id number] RECD: 07/21/23 STATUS: JOCY SOFIYA NUM: [id number] BILL: 07/20/23 DR: Wesley Solis ENTERED: 07/21/23 [facility] DR: Carlos,Marilynn SPEC TYPE: Surgical DEPT: JERZY CASTRO ORDERED: HE/2, Gross/Micro L4 ORDERED: HE/2, Gross/Micro L4 Pathological Diagnosis Endometrial biopsy: - No diagnostic tissue identified, see the gross description Gross Description Specimen is labeled endometrial biopsy. No visible specimen. Container is filtered in 1 cassette. CPT Codes 24634 ---- ---- Specimen: [id number] Received: 07/21/23 Status: JOCY Arriaza Num: [id number] Spec Type: Surgical Subm Dr: Wesley Solis Tissues: A Endometrium - Biopsy (EMBX) Procedures: HE/2, Javier/Arcenio L4 ---- Patient: Maria Fernanda Gonzalez [id number] (Continued) ---- Signed (signature on file) Tim Helton MD 07/22/23 1624 [place] [facility] Encounters Encounter Date Encounter Type Care Provider Facility Start: 09-08-2023 End: 09-08-2023 ambulatory TAMIKO PINEDA Not Available Start: 08-31-2023 End: 08-31-2023 ambulatory WESLEY IRMA Not Available Start: 08-19-2023 End: 08-19-2023 ambulatory Wesley Irma Facility:[facility] Start: 07-20-2023 End: 07-20-2023 ambulatory WESLEY IRMA [facility] Work Phone: Start: 07-20-2023 End: 07-20-2023 Departed Referred Wesley Solis Work Phone: [facility] Path [facility] Start: 06-22-2023 End: 06-22-2023 ambulatory TAMIKO PINEDA Not Available Payers Date Payer Category Payer Self-pay 2020 Private Health Insurance [id number] 1985 Unknown [id number] [id number] [id number] 1985 Unknown [id number] 2.16.84 [id number] 1984 Unknown [id number] 2.16.84 [id number] 1984 Unknown [id number] 2.16.84 [id number] Unknown [id number] 2.16.8 [id number] Unknown [id number] 2.16.8 [id number] Social History Date Type Detail Facility Tobacco smoking stat [facility] Unknown if ever smoked [facility] Work Phone: Start: 1985 Sex Assigned At Female F [facility] Evaluation note Note Date & Type Note Facility Evaluation note No assessment information availa ble [facility] Work Phone: Advance Directives No [...] section and content) DATE CREATED AUTHOR 09/12/[address] [facility] Specialists [facility] DATE CREATED AUTHOR AUTHOR'S ORGANIZ ATION 12/02/2023 [facility] ysician Group FOR RECORDS PERTAINING TO [...] BE BASED ON THE PRIMARY CLINICAL RECORDS. [facility] [employer] [facility]. provides no warranty or guarantee of the accuracy or completeness of information in this document.
== END 2023-12-30 13:45 | disposition home or self-care (01) ==
LOC: MAMMO 13:44
PROVIDERS: PCP Nurse Practitioner Family; Visit Provider Nurse Practitioner Family
DX: N64.4 Mastodynia (principal)
CPT/HCPCS: 77066; G0279

== ENCOUNTER 2024-07-05 07:24 | Outpatient (OUT) | payer OTHER, SELFPAY ==
--- OUTSIDE RECORDS SUMMARY | 2024-07-05 07:29 | XMS_ITS | CCD ---
Author Organization [facility] Care Team Providers Care Caustic Strength Inspector Name Role Phone Wesley Solis Attending Provider [phone] Unavailable Primary Care Provider Unavailabl e TAMIKO PINEDA Attending Unavailable IRMA, WESLEY Attending Unavailable IRMA, WESLEY Attending Unavailable TAMIKO PINEDA Attending Unavailable IRAM, WESLEY Attending Unavailable Irma, Wesley Admitting Unavailable Irma, Wesley Attending Unavailable Irma, Wesley Admitting Unavailable Irma, Wesley Attending Unavailable Moody Lopez Admitting Unavailab le Moody Lopez Attending Unavailab le Medications Current Medications Medication Drug Class(es) Dates Sig (Normalized) Sig (Original) OLANZapine 2.5 mg oral tablet (2 sources) Atypical Antipsychotic Start: 12-06-2023 OLANZapine (ZyPREXA) 2.5 MG tablet 12/06/2023 Active Problems Problem Classification Problem Date Documented Da te Episodic/Chronic Abdominal pain (2 sources) Pain in female pelvis; Translations: [Pelvic and perineal pain] 01-18-2024 Episodic Results Test Name Value Interpretation Reference Range Facil ity Joe 08-19-2023 L Specimen: [id number] Received: 08/19/23 Status: SOUJose Eduardo Req Num: [id number] Spec Type: Surgical Subm Dr: Wesley Solis Tissues: A Endometrium - Curettings (EMC) Procedures: HE/2, Gross/Micro L4 Age/ Patient Sex Location Account Attending Physician Sharri Sheldon 38/F [place] [id number] Wesley Solis SPEC NUM: [id number] RECD: 08/19/23 STATUS: SOUJose Eduardo REQ NUM: [id number] BILL: 08/19/23-[address]: Wesley Solis ENTERED: 08/19/[address] [facility] [address]: Marilynn Gonzalez SPEC TYPE: Surgical DEPT: JERZY CASTRO ORDERED: HE/2, Gross/Micro L4 ORDERED: HE, Gross/Micro L4 Pathological Diagnosis Endometrial curettings: -Multiple [...] blood, entirely submitted in A1. CPT Codes 57291 ---- ---- Specimen: [id number] Received: 08/19/23 Status: JOCY Ortega Num: [id number] Spec Type: Surgical Subm Dr: Wesley Solis Tissues: A Endometrium - Curettings (EMC) Procedures: HE/2, Gross/Micro L4 ---- Patient: Sharri Sheldon [id number] (Continued) ---- Signed (signature on file) Yoan-Aly Hinton MD 08/22/232021 Normal [facility] Joe 07-20-2023 L Specimen: [id number] Received: 07/21/23 Status: JOCY Ortega Num: [id number] Spec Type: Surgical Subm Dr: Wesley Solis Tissues: A Endometrium - Biopsy (EMBX) Procedures: HE/2, Gross/Micro L4 Age/ Patient Sex Location Account Attending Physician Ruth Sheldonie 38/F [place] [id number] Wesley Solis SPEC NUM: [id number] RECD: 07/21/23 STATUS: JOCY ORTEGA NUM: [id number] BILL: 07/20/23 DR: Wesley Solis ENTERED: 07/21/[address] [facility] [address]: Carlos,Lab SPEC TYPE: Surgical DEPT: JERZY CASTRO ORDERED: HE/2, Gross/Micro L4 ORDERED: HE/2, Gross/Micro L4 Pathological Diagnosis Endometrial biopsy: - No diagnostic tissue identified, see the gross description Gross Description Specimen is labeled endometrial biopsy. No visible specimen. Container is filtered in 1 cassette. CPT Codes 95377 ---- ---- Specimen: [id number] Received: 07/21/23-1237 Status: JOCY Ortega Num: [id number] Spec Type: Surgical Subm Dr: Wesley Solis Tissues: A Endometrium - Biopsy (EMBX) Procedures: HE/2, Gross/Micro L4 ---- Patient: hSarri Sheldon [id number] (Continued) ---- Signed (signature on file) Tim Helton MD 07/22/23 1624 Normal [facility] Encounters Encounter Date Encounter Type Care Provider Facility Start: 01-18-2024 End: 01-18-2024 Office outpatient visit 15 minutes Wesley Solis DO Work Phone: [facility] Comment on above: Pelvic pain in femal e Start: 01-18-2024 End: 01-18-2024 ambulatory WESLEY SOLIS Not Available Start: 01-18-2024 End: 01-18-2024 Bamboo flowsheet Wesley Irma DO Work Phone: [facility] Start: 01-18-2024 End: 01-18-2024 Bamboo flowsheet Wesley Irma DO Work Phone: [facility] Start: 12-07-2023 ambulatory Moody Jaquezelaziz Mohit acility:[facility] Start: 09-08-2023 End: 09-08-2023 ambulatory TAMIKO PINEDA Not Available Start: 08-31-2023 End: 08-31-2023 ambulatory WESLEY IRMA Not Available Start: 08-19-2023 End: 08-19-2023 ambulatory Wesley Irma Facility:[facility] Start: 07-20-2023 End: 07-20-2023 ambulatory WESLEY IRMA [facility] Work Phone: Start: 07-20-2023 End: 07-20-2023 Departed Referred Wesleylisa Gonzalezo Work Phone: [facility] Start: 06-22-2023 End: 06-22-2023 ambulatory TAMIKO PINEDA Not Available Plan of Treatment Date Care Activity Detail Author Start: 07-10-2024 End: 07-10-2024 Patient encounter procedure 07/10/2024 8:30 AM EDT Office Visit [facility] [address] [place] [id number] Wesley Solis, DO [address] [place] [address] [facility] Start: 01-18-2024 End: 01-18-2024 Patient encounter procedure 01/18/2024 2:40 PM EST Office Visit [facility] [address] [place] [address] Wesley Solis, DO [address] [place] [address] Arrived [facility] Comment on above: Arrived Start: 01-18-2024 End: 01-17-2025 US for US PELVIS-TRANSVAG IF INDICATED Imaging Routine Pelvic pain in female Expected: 01/18/2024 (Approximate), Expires: 01/17/2025 [facility] Work Phone: Comment on above: Expected: 01/18/2024 (Approximate), Expires: 01/17/2025 Payers Date Payer Category Payer Self-pay 2020 Private Health Insurance LEONILA Santos embstephanie [id number] 2020 Private Health Insurance [id number] 1985 Unknown [id number] .1258 1984 Unknown [id number] [id number] .1258 1984 Unknown [id number] [id number] .1258 1984 Unknown [id number] .9 1984 Unknown [id number] .1259 Unknown [id number] [id number] .531 Unknown [id number] .531 Unknown [id number] .531 Social History Date Type Detail Facility Tobacco smoking status [facility] Unknown if ever smoked [facility] Work Phone: Start: 1985 Sex Assigned At Female F [facility] Tobacco smoking status [facility] Tobacco smoking consumption unknown [facility] Start: 1985 Sex assigned at Not on file [facility] Gender identity Not on file [facility] History of Present illness Narrative 01-18-2024 Melody CoonDANNY - 01/18/2024 2:40 PM EST Note Date & Type Note Facility 01-18-2024 History of Presen t illness Narrative Reason for Appointment: Patient ID: Sharri Sheldon is a 38 y.o. female who presents for Pelvic Pain Patient presents today for Acute Visit. MEDICATIONS Current Outpatient Medications Medication Instructions OLANZapine (ZyPREXA) 2.5 MG tablet ALLERGIES No Known Allergies PROBLEMS Active Ambulatory Problems Diagnosis Date Noted No Active Ambulatory Problems Resolved Ambulatory Problems Diagnosis Date Noted No Resolved Ambulatory Problems Past Medical History: Diagnosis Date Endometriosis History of ovarian cyst Menorrhagia with irregular cycle HISTORY PAST MEDICAL HISTORY SOCIAL HISTORY Past Medical History: Diagnosis Date Endometriosis History of ovarian cyst Menorrhagia with irregular cycle Social History Tobacco Use Smoking status: Not on file Smokeless tobacco: Not on file Substance Use Topics Alcohol use: Not on file Drug use: Not on file FAMILY HISTORY No family history on file. SURGICAL HISTORY Past Surgical History: Procedure Laterality Date ENDOMETRIAL ABLATION 08/19/2023 with hysteroscopy SALPINGECTOMY Bilateral 08/19/2023 w/[place] REVIEW OF SYSTEMS Review of Systems: Review of Systems Constitutional: Negative. HENT: Negative. Eyes: Negative. Respiratory: Negative. Cardiovascular: Negative. Gastrointestinal: Negative. Genitourinary: Positive for pelvic pain. Musculoskeletal: Negative. Skin: Negative. Neurological: Negative. All other systems reviewed and are negative. Hematological: Negative. Endocrine: Negative. Allergic/Immunologic: Negative. OBJECTIVE Objective: Physical Exam Constitutional: Appearance: Normal appearance. She is well-developed. Cardiovascular: Rate and Rhythm: Normal rate and regular rhythm. Pulmonary: Effort: Pulmonary effort is normal. Breath sounds: Normal breath sounds. Abdominal: General: Bowel sounds are normal. There is no distension. Palpations: Abdomen is soft. Tenderness: There is no abdominal tenderness. There is no guarding or rebound. Musculoskeletal: General: No swelling. Normal range of motion. Right lower leg: No edema. Left lower leg: No edema. Neurological: Mental Status: She is alert and oriented to person, place, and time. Skin: General: Skin is warm and dry. Psychiatric: Mood and Affect: Mood normal. Behavior: Behavior normal. Vitals and nursing note reviewed. Exam conducted with a media consultant outside sales present. Vitals: Estimated body mass index is 27.62 kg/m as calculated from the following: Height as of 08/31/23: 5' 11.5 . Weight as of 09/08/23: 200 lb 12.8 oz. BP: No LMP recorded. ASSESSMENT & PLAN ICD-10-CM 1. Pelvic pain in female R10.2 Neisseria gonorrhea DNA probe, direct CHLAMYDIA TRACHOMATIS (GENITO/STI) US PELVIS-TRANSVAG IF INDICATED CANCELED: POCT urinalysis dipstick manually resulted CANCELED: POCT , urine manually resulted CANCELED: SURESWAB(R) ADVANCED VAGINITIS PLUS, TMA CANCELED: SURESWAB(R) ADVANCED VAGINITIS PLUS, TMA Pt doing well with complaints of intermittent pelvic pain. Pt had ultrasound prior and reviewed with pt in detail, has a fundal fibroid. Pt refusing cultures at this time. Pt advised to keep track of pain and if it times up mid cycle and could be mittleschmirtz. Pt given order for ultrasound to have obtained in 6 months. Pt to return for annual unless needed sooner. Documented by Melody Coon LPN on behalf of: Wesley Solis DO documented in this encounter [facility] Evaluation note Note Date & Type Note Facility Evaluation note [facility] Evaluation note Note Date & Type Note Facility Evaluation note Diagnosis Pelvic pain in female Unspecified symptom associated with female genital organs documented in this encounter [facility] Advance Directives No Advanced Directives Records Found [...] be documented in a n alternate section Reason for Visit (unrecogniz ed section and content) Reason Comments Pelvic Pain INFORMATION SOURCE (unrecogn ized section and content) DATE CREATED AUTHOR 01/21/2024 [facility] DATE CREATED AUTHOR AUTHOR'S ORGANIZ ATION 01/26/2024 [facility] ysician Group FOR RECORDS PERTAINING TO PATIENTS [...] BE BASED ON THE PRIMARY CLINICAL RECORDS. [facility] [employer] provides no warranty or guarantee of the accuracy or completeness of information in this document.
--- NOTE | 2024-07-05 07:39 | US_ITS ---
The [address] [address] Patient Name: MARIA FERNANDA GONZALEZ MRN: [id number] date: 1985 Sex: F Assigned Patient Location: Current Patient Location: Accession/Order Number: [id number] Exam Date: 07/05/2024 09:04 Report Date: 07/05/2024 09:07 At the request of: WESLEY SAUCEDO DO Procedure: US pelvis w/ transvaginal EXAMINATION TYPE: US pelvis w/ transvaginal Grayscale, color scale Doppler, vascular duplex analysis of the bilateral ovaries DATE OF EXAM ORDERED: 07/05/2024 8:12 AM HISTORY: Pelvic Pain, history of endometriosis COMPARISON: NONE TECHNIQUE: Realtime Transvaginal and Transabdominal imaging was performed. Transvaginal imaging was utilized to better evaluate the ovaries and the endometrial stripe. Grayscale, color scale Doppler, vascular duplex analysis of the bilateral ovaries was performed to assess blood flow. FINDINGS: The uterus measures 7.7 x 3.5 x 5.4 cm. The uterus is normal in echogenicity. Endometrium: Normal thickness and appearance. Intraosseous 4 mm in thickness Ovaries: The visualized ovaries are within normal limits for songraphic evaluation. There is a dominant follicle in the right ovary measuring 1.6 cm in greatest dimension. Right Ovary measurements: 3.3 x 2.9 x 2.9 cm Left Ovary measurements: 3.0 x 2.9 x 3.0 cm No abnormal adnexal mass is seen. No free fluid in the pelvic cul-de-sac. Vascular duplex analysis of the bilateral ovaries demonstrates normal blood flow without evidence of ovarian ischemia. US/US pelvis w/ transvaginal IMPRESSION: Normal pelvic ultrasound. No evidence of ovarian ischemia. Impression dictated by: Jayce Mcclain M.D. 07/05/2024 9:07 AM Dictation Location: [place] [address] Electronically authenticated by: [id number] Y Date: 07/05/2024 09:07
== END 2024-07-05 07:25 | disposition home or self-care (01) ==
LOC: US 07:26
PROVIDERS: PCP Nurse Practitioner Family; Visit Provider Obstetrics & Gynecology
DX: R10.2 Pelvic and perineal pain (principal)
CPT/HCPCS: 76830; 76856

== ENCOUNTER 2024-07-10 12:57 | Outpatient (REF) | payer OTHER, SELFPAY ==
[2024-07-12 17:09] LABS: Age Gdln ACOG Testing Note (.); HPV Aptima Negative (Negative); IGP, Aptima HPV, rfx 16/18,45 Note (.)
== END 2024-07-10 12:58 | disposition home or self-care (01) ==
LOC: LAB 12:57
PROVIDERS: PCP Nurse Practitioner Family; Visit Provider Obstetrics & Gynecology
DX: Z01.419 Encounter for gynecological examination (general) (routine) without abnormal findings (principal)
CPT/HCPCS: 87624; 88175

== ENCOUNTER 2024-12-31 08:09 | Outpatient (OUT) | payer OTHER, SELFPAY ==
--- OUTSIDE RECORDS SUMMARY | 2024-12-31 08:12 | XMS_ITS | Patient Health Record ---
Author Organization [facility] in [place] Address [address] [place] [address] Care Team Providers Care Aircraft Load Controller Name Role Phone Dot Peguero Primary Care Provider [phone] Nathan Salazar [phone] Allergies No Known Allergies Results Component Value Reference Range Notes US pelvis w/ transvaginal Reviewed date:07/06/2024 02:26:23 PM Interpretation: Performing Lab: Notes/Report: Source Facility: [place] [address] Ultrasound Report Signed with Addenda Patient: MARIA FERNANDA GONZALEZ MR#: [id number] : 1985 Acct:[id number] Age/Sex: 39 / F ADM Date: 07/05/24 Loc: US Attending Dr: Wesley Solis D.O. Ordering Physician: Wesley Solis D.O. Date of Service: 07/05/24 Procedure(s): US pelvis w/ transvaginal Accession Number(s): [id number] cc: DOT PEGUERO ; Wesley Solis D.O. ADDENDUM The [place] [id number] This is an addendum TECHNIQUE: Realtime Transabdominal imaging was performed. Grayscale, color scale Doppler, vascular duplex analysis of the bilateral ovaries was performed to assess blood flow. Impression dictated by: Jayce Mcclain M.D. 07/06/2024 11:10 AM Dictation Location: [employer] Electronically authenticated by: [id number] Y Date: 07/06/2024 11:10 Patient Name: MARIA FERNANDA GONZALEZ MRN: [id number] date: 1985 Sex: F Assigned Patient Location: US Current Patient Location: Accession/Order Number: [id number] Exam Date: 07/06/2024 11:10 Report Date: 07/06/2024 11:10 At the request of: WESLEY SOLIS DO Procedure: US pelvis w/ transvaginal [place] [id number] Patient Name: MARIA FERNANDA GONZALEZ MRN: [id number] date: 1985 Sex: F Assigned Patient Location: US Current Patient Location: US Accession/Order Number: [id number] Exam Date: 07/05/2024 09:04 Report Date: 07/05/2024 09:07 At the request of: WESLEY SOLIS DO Procedure: US pelvis w/ transvaginal EXAMINATION TYPE: US pelvis w/ transvaginal Grayscale, color scale Doppler, vascular duplex analysis of the bilateral ovaries DATE OF EXAM ORDERED: 07/05/2024 8:12 AM HISTORY: Pelvic Pain, history of endometriosis COMPARISON: NONE TECHNIQUE: Realtime Transvaginal and Transabdominal imaging was performed. Transvaginal imaging was utilized to better evaluate the ovaries and the endometrial stripe. Grayscale, color scale Doppler, vascular duplex analysis of the bilateral ovaries was performed to assess blood flow. FINDINGS: The uterus measures 7.7 x 3.5 x 5.4 cm. The uterus is normal in echogenicity. Endometrium: Normal thickness and appearance. Intraosseous 4 mm in thickness Ovaries: The visualized ovaries are within normal limits for songraphic evaluation. There is a dominant follicle in the right ovary measuring 1.6 cm in greatest dimension. Right Ovary measurements: 3.3 x 2.9 x 2.9 cm Left Ovary measurements: 3.0 x 2.9 x 3.0 cm No abnormal adnexal mass is seen. No free fluid in the pelvic cul-de-sac. Vascular duplex analysis of the bilateral ovaries demonstrates normal blood flow without evidence of ovarian ischemia. Addendum Dictated By: Jayce Mcclain M.D. Addendum Signed By: 07/06/24 1 113 Addendum Cosigned By: DD/ TD/TT: / ADDENDUM US/US pelvis w/ transvaginal IMPRESSION: Normal pelvic ultrasound. No evidence of ovarian ischemia. Impression dictated by: Jayce Mcclain M.D. 07/05/2024 9:07 AM Dictation Location: [place] [address] Electronically authenticated by: [id number] Y Date: 07/05/2024 09:07 Addendum Dictated By: Jayce Mcclain M.D. Addendum Signed By: 07/06/24 1 113 Addendum Cosigned By: DD/ TD/TT: / [place] [address] Patient Name: MARIA FERNANDA GONZALEZ MRN: [facility]:[id number] date: 1985 Sex: F Assigned Patient Location: Current Patient Location: Accession/Order Number: [id number] Exam Date: 07/05/2024 09:04 Report Date: 07/05/2024 09:07 At the request of: WESLEY SOLIS DO Procedure: US pelvis w/ transvaginal EXAMINATION TYPE: US pelvis w/ transvaginal Grayscale, color scale Doppler, vascular duplex analysis of the bilateral ovaries DATE OF EXAM ORDERED: 07/05/2024 8:12 AM HISTORY: Pelvic Pain, history of endometriosis COMPARISON: NONE TECHNIQUE: Realtime Transvaginal and Transabdominal imaging was performed. Transvaginal imaging was utilized to better evaluate the ovaries and the endometrial stripe. Grayscale, color scale Doppler, vascular duplex analysis of the bilateral ovaries was performed to assess blood flow. FINDINGS: The uterus measures 7.7 x 3.5 x 5.4 cm. The uterus is normal in echogenicity. Endometrium: Normal thickness and appearance. Intraosseous 4 mm in thickness Ovaries: The visualized ovaries are within normal limits for songraphic evaluation. There is a dominant follicle in the right ovary measuring 1.6 cm in greatest dimension. Right Ovary measurements: 3.3 x 2.9 x 2.9 cm Left Ovary measurements: 3.0 x 2.9 x 3.0 cm No abnormal adnexal mass is seen. No free fluid in the pelvic cul-de-sac. Vascular duplex analysis of the bilateral ovaries demonstrates normal blood flow without evidence of ovarian ischemia. US/US pelvis w/ transvaginal IMPRESSION: Normal pelvic ultrasound. No evidence of ovarian ischemia. Impression dictated by: Jayce Mcclain M.D. 07/05/2024 9:07 AM Dictation Location: [place] [address] Electronically authenticated by: [id number] Y Date: 07/05/2024 09:07 Dictated By: Jayce Mcclain M.D. Signed By: 07/05/24909 DD/ 6 TD/TT: Sweater Designer: DENISE19, Flu A+B IH (Not ye t reviewed by provider) Interpretation: Performing Lab: Notes/Report: COVID + FLU A-FLU B-Control+IGP,Aptima HPV,Age Gdln Reviewed date:07/13/2024 11:53:11 AM Interpretation: Performing Lab: Notes/Report: BRUSH-SPATULA CERVIX ENDOCERVIX [facility] ,Age Gdln ACOG TestingNote. [address] [facility] [place] [address] Performed at: Age Algo ACOG Valentina... 30-65 01 L-Low Normal,H-High Normal,LL-Alert Low,HH-Alert High Source.............Cervix;Endocervix Clinician Provided Cytology Information FLAG LEGEND: TESTS RESULT FLAG UNITS REF RANGE LAB No. of containers..01 ThinPrep Vial 01 =G [facility] [place] Nicky Maza MD, <-Panic Low,>-Panic High,A-Abnormal,AA-Critical Abnormal IGP, Aptima HPV, rfx 16/18,45Note. Note: Note 02 This liquid based ThinPrep(R) pap test was screened with Test Methodology: Note 02 HPV Genotype Reflex Note 02 FLAG LEGEND: occur. NEGATIVE FOR INTRAEPITHELIAL LESION OR MALIGNANCY. Performed by: 02 L-Low Normal,H-High Normal,LL-Alert Low,HH-Alert High Criteria not met, HPV Genotype not performed. cells (endocervical component) are present. TESTS RESULT FLAG UNITS REF RANGE LAB cancer. Both false-positive and false-negative reports do [address] [place] [address] Performed at: Satisfactory for evaluation. Endocervical and/or squamous metaplastic The Pap smear is a screening test designed to aid in the Nicky Maza MD, . 02 DIAGNOSIS: 02 Specimen adequacy: 02 detection of premalignant and malignant conditions of the [employer] ([employer]) <-Panic Low,>-Panic High,A-Abnormal,AA-Critical Abnormal should not be used as the sole means of detecting cervical uterine cervix. It is not a diagnostic procedure and the use of an image guided system. 02 [facility] HPV AptimaNegativeNegative This nucleic acid amplification test detects fourteen high- risk HPV types (16,18,31,33,35,39,45,51,52,56,58,59,66,68) Concrete Pipe Plant Supervisor: Nicky Maza MD, Phone: [phone] [address] [facility], [place] [id number] [address] [place], [place] [id number] Performed at: [facility] Performed at: =[facility] without differentiation. Con[employer] Pipe Plant Supervisor: Nicky Maza MD, Phone: [phone] Performing Lab:see [facility] - [facility] Reason For Referral No Information Medications Medication SIG (Take, Route, Frequency, Duration) Notes Start Date End Date Status Amoxicillin-Pot Clavulanate 875-125 MG 1 tablet Orally every 12 hrs; Duration: 10 days 5Active Social History Tobacco Use: Social History Observation Description Date Details (start date - stop date) Never Smoker NA - NA Tobacco Control (Standard) Question Answer Notes Tobacco use: Nonsmoker AUDIT-C (Standard) Question Answer Notes Did you have a drink containing alcohol in the p ast year? No Ubrvyu0VzghzwreoirdqlIrjenjix Vital Signs Temperature 98.3 degrees Fahrenheit 11/13/2024 Blood pressure taxdaldmp92 mm Hg11/13/20244463Ptcuyx64 in11/13/2024lood pressure puzgfeep535 mm Hg11/13/20240764Hjmjqx064 lbs11/13/2024BMI32.77 kg/m211/13/2024 Encounters Encounter Location Date Provider Diagnosis [facility] [address] [place] [address] 02/28/2024 Dot Peguero [facility] [place] [address] 11/13/2024Dot Valles pharyngitis J02.0[facility] [address] [place] [address]/26/2024oug HoyFever R50.9 ; Acute non-recurrent sinusitis, unspecified location J01.90 and Nasal congestion R09.81 Assessments Encounter Date Diagnosis (ICD Code) Assessment Notes Treatment Notes Treatment Clinical Notes Section Notes 02/16/2024 Fever (ICD-10 - R50.9) 11/13/2024Strep pharyngitis (ICD-10 - J02.0)fu if not iijdgdpul72/26/2024cute non-recurrent sinusitis, unspecified location (ICD-10 - J01.90)Rest and drink more liquids, especially water. You may use a humidifier or vaporizer to help keep the drainage moist. Qqqz-isy-ikhzizm Nasal Saline may help the stuffy and runny nose. Use Ibuprofen and or Tylenol as needed for fever, chills, body aches or pain. Children 5 years old should not be given onef-clc-zhdfmtt cough and cold medications such as guaifenesin and dextromethorphan. If you're over age 5, you may try dcgt-fbp-tfexjdu cold medications such as guaifenesin and dextromethorphan, or multi-symptom cold reliever such as Dayquil to help reduce the symptoms. Antibiotics have been prescribed. You should take these until completed and follow the directions. Antibiotics can sometimescause upset stomach, and in rare cases, serious allergic reactions or serious gastrointestinal problems. If you start having severe abdominal pain, severe vomiting, or bloody diarrhea, you should be reevaluated by your physician or urgent care immediately. Follow up with your Primary Care Provider or return to clinic if symptoms do not improve within 3-5 days02/16/2024Nasal congestion (ICD-10 - R09.81) Plan Of Treatment Pending Test Test Name Order Date COVID-19, Flu A+B IH 02/16/2024 BI MAMMOGRAM DIAGNOSTIC TOMOSYNTHESIS BI LATERAL 12/20/2023 Insurance Providers Payer Name Payer Address Payer Phone Subscriber Number Group Number Insured Name Patient Relationship to Insured Coverage Start Date Coverage End Date LEONILA MACIAS [id number] [place] [id number] Arnulfo Gonzalezelf - patient is the insured Medical (General) History Medical History History ICD Code acute psychosis Surgical History Surgery Date(Month/Year) right knee scope tubal ligatation and ablation
--- OUTSIDE RECORDS SUMMARY | 2024-12-31 08:12 | XMS_ITS | Encounter Summary ---
Author Organization [facility] Address [address] [place] [address] Care Team Providers Care Forensic Locksmith Name Role Phone Unavailable Primary Care Provider Unavailabl e Encounter Details DateTypeDepartmentCare Team (Latest Contact Info)Gjyowseadqh53/15/2024Clinisync Result Encounter [facility] External Department Unsolicited Lola Pineda PA [address] [place], [place] [id number] Social History Tobacco UseTypesPacks/DayYears UsedDateSmoking Tobacco: Never Assessed CommentsNoSex and Gender InformationValueDate RecordedSex Assigned at BirthNot on fileLegal UngFvdqve10/01/2023 8:35 PM EDTGender IdentityNot on fileSexual OrientationNot on filedocumented as of this encounter Plan of Treatment DateTypeDechi st. [facility] (Latest Contact Info)Ckoqzazivbg86/26/2026 8:30 AM EDTOffice Visit [facility] [address] [place] [address] Rey Solis DO [address] [place] [address] documented as of this encounter Procedures Procedure NamePriorityDate/TimeAssociated DiagnosisCommentsUS PELVIS W/ KFLBKRSFRGRY46/15/2024 10:12 AM EDT documented in this encounter Results * US PELVIS W/ TRANSVAGINAL (07/06/2023 10:12 AM EDT)Anatomical RegionLaterality ModalityOtherSpecimen (Source)Anatomical Location / LateralityCollection Method / VolumeCollection TimeReceived Time07/06/2023 10:12 AM EDT Narrative 07/06/2023 10:14 AM EDT [facility] ?[address] ? [place] [address] ? Ultrasound Report ? Signed ? Patient: WHITE,MARIA FERNANDA M ?MR#: [id number] ?? : 1985 ?Acct:[id number] ?? Age/Sex: 38 / F ?ADM Date: //24 ?? Loc: [facility] ? Attending Dr: Lola Pineda ? Ordering Physician: Lola Pineda ?? Date of Service: 07/06/23 ?? Procedure(s): US pelvis w/ transvaginal ?? Accession Number(s): [id number] ? cc: Lola Pineda; Physician,Non-Staff M.D. ? [facility] ? [address] ? [place] [address] ? Patient Name: ?? MARIA FERNANDA GONZALEZ ? MRN: [facility]:[id number] ? date: 1985 ?Sex: F ?? Assigned Patient Location: [facility] ?? Current Patient Location: [facility] ?? Accession/Order Number: [id number] ?? Exam Date: 07/06/2023 ??09:02 ?Report Date: 07/06/2023 ??10:12 ? At the request of: ?? LOLA ??EDWIN ? Procedure: ??US pelvis w/ transvaginal ? EXAMINATION: US pelvis w/ transvaginal ? HISTORY: MENORRHAGIA ? COMPARISON: No relevant comparison available. ? FINDINGS: ? Transabdominal and transvaginal images ? The uterus is normal in size measuring 8.7 x 4.0 x 5.7 cm. Anteverted, ?? anteflexed. Identified in the left fundal myometrium is a 1.8 x 1.5 x 1.0 cm ?? area of hypoechogenicity ? Endometrium measures 4 mm, normal. Area of hypoechogenicity in the cervix ?? measuring 0.9 cm, avascular, a cyst is favored. ? The right ovary is normal measuring 2.4 x 1.7 x 2.7 cm. Normal color and ?? Doppler flow. ? The left ovary is normal measuring 2.6 x 2.0 x 1.8 cm. Normal color and ?? Doppler ?? flow. ? No free fluid ? US/US pelvis w/ transvaginal ?? IMPRESSION: ? 1.8 cm posterior myometrial mass. A fibroid is favored ? 0.9 cm complex cyst of the cervix ? No explanation for the patient's menorrhagia ? Electronically authenticated by: DELBERT ??SAVANNA ?? Date: 07/06/2023 ??10:12 ? Dictated By: ?Delbert Corrales M.D. ? Signed By: ?07/06/23 1014 ? DD/ 1012 ? TD/TT: ? Internet Merchant: Procedure Note Radiology, Radiologist, MD - 07/06/2023 [place] [address] Ultrasound Report Signed Patient: MARIA FERNANDA GONZALEZ MMR#: [id number] : 1985Acct:[id number] Age/Sex: 38 / FADM Date: 07/06/23 Loc: [facility] Attending Dr: Lola Pineda Ordering Physician: Lola Pineda Date of Service: 07/06/23 Procedure(s): US pelvis w/ transvaginal Accession Number(s): [id number] cc: Lola Pineda; Physician,Non-Staff M.D. The [place] [id number] Patient Name: MARIA FERNANDA GONZALEZ MRN: [facility]:[id number] date: 1985 Sex: F Assigned Patient Location: [facility] Current Patient Location: [facility] Accession/Order Number: [id number] Exam Date: 07/06/2023 09:02 Report Date: 07/06/2023 10:12 At the request of: LOLA PINEDA Procedure: US pelvis w/ transvaginal EXAMINATION: US pelvis w/ transvaginal HISTORY: MENORRHAGIA COMPARISON: No relevant comparison available. FINDINGS: Transabdominal and transvaginal images The uterus is normal in size measuring 8.7 x 4.0 x 5.7 cm. Anteverted, anteflexed. Identified in the left fundal myometrium is a 1.8 x 1.5 x 1.0cm area of hypoechogenicity Endometrium measures 4 mm, normal. Area of hypoechogenicity in the cervix measuring 0.9 cm, avascular, a cyst is favored. The right ovary is normal measuring 2.4 x 1.7 x 2.7 cm. Normal color and Doppler flow. The left ovary is normal measuring 2.6 x 2.0 x 1.8 cm. Normal color and Doppler flow. No free fluid US/US pelvis w/ transvaginal IMPRESSION: 1.8 cm posterior myometrial mass. A fibroid is favored 0.9 cm complex cyst of the cervix No explanation for the patient's menorrhagia Electronically authenticated by: DELBERT CORRALES Date: 07/06/2023 10:12 Dictated By: Delbert Corrales M.D. Signed By:07/06/23 1014 DD/ 1012 TD/TT: Internet Merchant: Authorizing ProviderResult TypeResult StatusAmy Prime Healthcare ServicesYN IMAGINGFinal Result documented in this encounter Visit Diagnoses Not on filedocumented in this encounter
--- OUTSIDE RECORDS SUMMARY | 2024-12-31 08:12 | XMS_ITS | Clinical Summary ---
Author Organization [facility] Address [address] [place] [address] Care Team Providers Care Catalyst Plant Supervisor Name Role Phone Unavailable Primary Care Provider Unavailabl e Allergies No known active allergies Medications MedicationSigDispense QuantityRefillsLast FilledStart DateEnd DateStatus cephalexin (Keflex) 500 MG capsule Indications:UTI symptomsTake 1 capsule (500 mg) by mouth in the morning and 1 capsule (500 mg) before bedtime. 1 30 mins before or after intercourse. 60 capsule Expired Encounters DateTypeDepartmentCare ExpoDnujerhbklw87/22/2025Telephone [facility] [address] [place] [phone] Rey Solis DO 10/30/2024Telephone [facility] [address] [place] [address] [place] [phone] Sagrario Collins LPN from Last 3 Months Social History Tobacco UseTypesPacks/DayYears UsedDateSmoking Tobacco: Never Assessed CommentsNoSex and Gender InformationValueDate RecordedSex Assigned at BirthNot on fileLegal HldYxavmd03/01/2023 8:35 PM EDTGender IdentityNot on fileSexual OrientationNot on file Last Filed Vital Signs Vital SignReadingTime TakenCommentsBlood Uznssmjk529/70007/10/2024 8:43 AM EDT Pulse--Temperature--Respiratory Rate--Oxygen Saturation--Inhaled Oxygen Concentration--Sfknyy832 kg (231 lb 12.8 oz)07/10/2024 8:43 AM IVGPpnfzl855.6 cm (5' 11.5 )08/31/2023 4:06 PM EDTBody Mass Index31.8807/11/2023 4:06 PM EDT Plan of Treatment DateTypeDepartmentCare Team (Latest Contact Info)Yizdxpvqejs04/26/2026 8:30 AM EDTOffice Visit [facility] [address] [place] [address] Rey Solis DO [address] [place] [address] Insurance
--- NOTE | 2024-12-31 08:13 | MM_ITS ---
Patient Name: MARIA FERNANDA GONZALEZ MR#: [id number] : 1985 Exam Date: 12/31/2024 Ordering Doctor: CASSIE MARTINES CNP RADIOLOGY REPORT PROCEDURE: MM TOMOSYNTHESIS SCREENING BI COMPARISON: MM TOMOSYNTHESIS DIAGNOSTIC BI, 12/30/2023. INDICATIONS: Screening Calculator Name NCI Breast Cancer Risk Assessment Tool 5 Year Breast Cancer Risk 0.70% Lifetime Breast Cancer Risk 12.10% Personal Breast Cancer No Personal Ovarian Cancer No Treatments None Family Cancers None LOCATION: [facility] BREAST COMPOSITION: The breasts are heterogeneously dense, which may obscure small masses. FINDINGS: RIGHT BREAST: No significant suspicious finding. LEFT BREAST: No significant suspicious finding. DIAGNOSTIC CATEGORY 1--NEGATIVE. NO CHANGE FROM COMPARISON ASSESSMENT. RECOMMENDATIONS: ROUTINE MAMMOGRAM AND CLINICAL EVALUATION IN 12 MONTHS. Dictated by: Jayce Mcclain MD on 12/31/2024 at 11:05 Approved by: Jayce Mcclain MD on 12/31/2024 at 11:10
--- OUTSIDE RECORDS SUMMARY | 2024-12-31 08:13 | XMS_ITS | CCD ---
Author Organization [facility] Care Team Providers Care Back End Developer Name Role Phone Wesley Solis Attending Provider [phone] Unavailable Primary Care Provider Unavailabl e Wesley Solis Admitting Unavailable Wesley Solis Attending Unavailable Wesley Solis Admitting Unavailable Wesley Solis Attending Unavailable Moody Lopez Admitting Unavailab Moody Romero Attending Unavailab WESLEY Easton Attending Unavailable WESLEY SOLIS Attending Unavailable WESLEY SOLIS Attending Unavailable LOLA PINEDA Attending Unavailable WESLEY SOLIS Attending Unavailable Medications Completed/Discontinued Medications MedicationDrug Class(es)DatesSig (Normalized)Sig (Original)OLANZapine 2.5 mg oral tablet (6 sources)Atypical AntipsychoticStart: 12-06-2023 End: 78-44-3535ZBSONtkzag (ZyPREXA) 2.5 MG tablet 12/06/2023 07/10/2024 Discontinued Problems Problem ClassificationProblemDateDocumented DateEpisodic/ChronicAbdominal pain (2 sources)Pain in female pelvis; Translations: [Pelvic and perineal pain] 76-92-1138OzxqagakLmufl screening for suspected conditions (not mental disorders or infectious disease) (2 sources)Patient encounter status; Translations: [Encounter for screening mammogram for malignant neoplasm of breast]69-38-2754Mnmfalbo Results Test NameValueInterpretationReference RangeFacilityUrinalysis macro (dipstick) panel (U)on 47-37-1173Uwbiihypd, UANegativeNegative - 4(70) +++ mg/dLNOMS HealthcareBlood, UANegativeNegative - 50 Pablo/mcLNOMS HealthcareClarity, UAClear NOMS HealthcareColor, UAYellowNOMS HealthcareGlucose, UANegativeNegative - 2000(110) ++++ mg/dLNOMS HealthcareInterpretation and review of laboratory resultsAbnormalNOMS HealthcareKetones, UANegativeNegative - 160(16) ++++ mg/dL NOMS HealthcareLeukocytes, UATraceNegative - 500+++ Samra/mcLNOMS Healthcare Nitrite, UANegativeNegative - PositiveNOMS HealthcarepH, UA7.55 - 9NOMS HealthcareProtein, UATraceNegative - 2000(20) ++++ mg/dLNOMS HealthcareSpec Grav, UA1.0151 - 1.03NOMS HealthcareUrobilinogen, UA0.20.2 - 12 mg/dLNOMS HealthcareNOMS HealthcareUS PELVIS W/ TRANSVAGINALon 32-25-3546XkuF[place], [place] [address] Ultrasound Report Signed Patient: MARIA FERNANDA SHELDON MR#: [id number] : 1985 Acct:[id number] Age/Sex: 39 / F ADM Date: 07/05/24 Loc: US Attending Dr: Wesley Solis D.O. Ordering Physician: Wesley Solis D.O. Date of Service: 07/05/24 Procedure(s): US pelvis w/ transvaginal Accession Number(s): [id number] cc: CASSIE MARTINES ; Wesley Solis D.O. The [address] [address] Patient Name: MARIA FERNANDA SHELDON MRN: [id number] date: 1985 Sex: F Assigned Patient Location: US Current Patient Location: US Accession/Order Number: [id number] Exam Date: 07/05/2024 09:04 Report Date: 07/05/2024 [...] Mcclain M.D. 07/05/2024 9:07 AM Dictation Location: [place] [address] Electronically authenticated by: [id number] Y Date: 07/05/2024 09:07 Dictated By: Jayce Mcclain M.D. Signed By: 07/05/24 0910 DD/ TD/TT: Full Stack Developer:TBHRadiology, Radiologist, - 07/05/2024 [place] [address] Ultrasound Report Signed Patient: MARIA FERNANDA SHELDON MR#: [id number] : 1985 Acct:[id number] Age/Sex: 39 / F ADM Date: 07/05/24 Loc: US Attending Dr: Wesley Solis D.O. Ordering Physician: Wesley Solis D.O. Date of Service: 07/05/24 Procedure(s): US pelvis w/ transvaginal Accession Number(s): [id number] cc: CASSIE MARTINES ; Wesley Solis D.O. The [address] [address] Patient Name: MARIA FERNANDA SHELDON MRN: [id number] date: 1985 Sex: F Assigned Patient Location: Current Patient Location: Accession/Order Number: [id number] Exam Date: 07/05/2024 09:04 Report Date: 07/05/2024 [...] Mcclain M.D. 07/05/2024 9:07 AM Dictation Location: [place] [address] Electronically authenticated by: [id number] Y Date: 07/05/2024 09:07 Dictated By: Jayce Mcclain M.D. Signed By: 07/05/24 0910 DD/ 6 TD/TT: Full Stack Developer: [facility] SouthRadiology Study observation (narrative)NOMS HealthcareUS PELVIS W/ TRANSVAGINALOrdered By: Radiologist Radiology on 80-85-4598UISN [employer] Work Phone: Lon [phone]: [id number] Received: 08/19/231305 Status: JOCY Jordan Num: [id number] Spec Type: Surgical Subm Dr: Wesley Solis Tissues: A Endometrium - Curettings (EMC) Procedures: HE/2, Gross/Micro L4 Age/ Patient Sex Location Account Attending Physician Maria Fernanda Sheldon 38/F [place] [id number] Wesley Solis SPEC NUM: [id number] RECD: 08/19/23 STATUS: JOCY DE LOS SANTOSFreddy NUM: [id number] BILL: 08/19/[address]: Wesley Solis ENTERED: 08/19/23 [facility] DR: Carlos,Lab SPEC TYPE: Surgical [...] blood, entirely submitted in A1. CPT Codes 73327 Specimen: [id number] Received: 08/19/23 Status: JOCY Ortega Num: [id number] Spec Type: Surgical Subm Dr: Wesley Solis Tissues: A Endometrium - Curettings (EMC) Procedures: Javier MCKEON/Arcenio L4 Patient: Maria Fernanda Sheldon [id number] (Continued) Signed (signature on file) Robyn Hinton MD 08/22/232021[facility] Physician GroupLon 93-62-8544AIyentnfu: [id number] Received: 07/21/23 Status: JOCY Ortega Num: [id number] Spec Type: Surgical Subm Dr: Wesley Solis Tissues: A Endometrium - Biopsy (EMBX) Procedures: LINDA Gross/Micro L4 Age/ Patient Sex Location Account Attending Physician Maria Fernanda Sheldon 38/F [place] [id number] Wesley Solis SPEC NUM: [id number] RECD: 07/21/23 STATUS: JOCY ORTEGA NUM: [id number] BILL: 07/20/23- SUBM DR: Wesley Solis ENTERED: 07/21/23 [facility] DR: Carlos,Lab SPEC TYPE: Surgical DEPT: JERZY CASTRO ORDERED: JOSE MIGUEL/Ramon, Gross/Micro L4 ORDERED: JOSE MIGUEL/Ramon, Gross/Micro L4 Pathological Diagnosis Endometrial biopsy: - No diagnostic tissue identified, see the gross description Gross Description Specimen is labeled endometrial biopsy. No visible specimen. Container is filtered in 1 cassette. CPT Codes 51812 Specimen: [id number] Received: 07/21/23 Status: JOCY Ortega Num: [id number] Spec Type: Surgical Subm Dr: Wesley Solis Tissues: A Endometrium - Biopsy (EMBX) Procedures: Javier MCKEON/Micro L4 Patient: Maria Fernanda Sheldon [id number] (Continued) Signed (signature on file) Tim Helton MD 07/22/23 1624 [facility] Physician GroupUS PELVIS W/ TRANSVAGINALon 39-11-4193JbnF[place], [place] [address] Ultrasound Report Signed Patient: MARIA FERNANDA SHELODN MR#: [id number] : 1985 Acct:[id number] Age/Sex: 38 / F ADM Date: 07/06/23 Loc: [facility] Attending Dr: Lola Pineda Ordering Physician: Lola Pineda Date of Service: 07/06/23 Procedure(s): US pelvis w/ transvaginal Accession Number(s): [id number] cc: Lola Pineda; Physician,Non-Staff M.D. [place] [address] Patient Name: MARIA FERNANDA SHELDON MRN: [id number] date: 1985 Sex: F Assigned Patient Location: [facility] Current Patient Location: [facility] Accession/Order Number: [id number] Exam Date: 07/06/2023 09:02 Report Date: 07/06/2023 [...] a 1.8 x 1.5 x 1.0 cm area of hypoechogenicity Endometrium measures 4 mm, [...] 10:12 Dictated By: Delbert Corrales M.D. Signed By: 07/06/23 1014 DD/ 1012 TD/TT: Full Stack Developer:TBHRadiology, Radiologist, - 07/06/2023 The [place] [id number] Ultrasound Report Signed Patient: MARIA FERNANDA SHELDON MR#: [id number] : 1985 Acct:[id number] Age/Sex: 38 / F ADM Date: 07/06/23 Loc: [facility] Attending Dr: Lola Pineda Ordering Physician: Lola Pineda Date of Service: 07/06/23 Procedure(s): US pelvis w/ transvaginal Accession Number(s): [id number] cc: Lola Pineda; Physician,Non-Staff Kunal The [address] [address] Patient Name: MARIA FERNANDA SHELDON MRN: [id number] date: 1985 Sex: F Assigned Patient Location: [facility] Current Patient Location: [facility] Accession/Order Number: [id number] Exam Date: 07/06/2023 09:02 Report Date: 07/06/2023 [...] a 1.8 x 1.5 x 1.0 cm area of hypoechogenicity Endometrium measures 4 mm, [...] 10:12 Dictated By: Delbert Corrales M.D. Signed By: 07/06/23 1014 DD/ 1012 TD/TT: Full Stack Developer: KEISHA HealthcareRadiology Study observation (narrative)NOM HealthcareUS PELVIS W/ TRANSVAGINALOrdered By: Radiologist Radiology on 94-34-8962NGXO Healthcare Work Phone: Vital Signs Date TimeVital SignValuePerforming IiophzioiVkwjpooe13-57-9667 08:43-0400Body mass index (BMI) [Ratio]31.88 kg/e5Kmkmz Irma DO Work Phone: [phone] SouthUeczhcvmhq68-34-9843 08:43-0400Body wsddim439.14 kgCorey Irma DO Work Phone: [facility] SouthRhqouzcmen35-04-3781 08:43-0400Diastolic blood eqoxdbgk43 mm[Hg]Wesley Irma DO Work Phone: Cox SouthBrtooyyndt45-08-5358 08:43-0400Systolic blood molsosqj802 mm[Hg]Wesley Irma DO Work Phone: [facility] Healthcare Encounters Encounter DateEncounter TypeCare ProviderFacilityStart: 07-10-2024 End: 04-31-2882Lptala flowsheetCorey Irma DO Work Phone: noPR BCP OBStart: 07-10-2024 End: 93-80-4612Eotkzm flowsheetCorey Irma DO Work Phone: noms BCP OBStart: 07-10-2024 End: 66-11-3271Hazzczc encounter procedureCorey Irma DO Work Phone: [facility] Work Phone: Start: 07-10-2024 End: 71-06-0305Lebjxejb preventive med est patient 40-64yrsCorey Irma DO Work Phone: [facility] OBComment on above:Well woman exam with routine gynecological exam; Breast cancer screening by mammogramStart: 07-10-2024 End: 81-73-7143rpfjpfgtkrAJHTJ FAZIONot AvailableStart: 07-05-2024 End: 30-06-5304Htykpyvpj Result EncounterCorey Irma DO Work Phone: noms External Department UnsolicitedStart: 07-05-2024 End: 40-84-6915Asprjgxkm Result EncounterCorey Irma DO Work Phone: noms External Department UnsolicitedStart: 01-18-2024 End: 39-00-8300Kvgmpz outpatient visit 15 minutesCorey Irma DO Work Phone: noms [facility] OBComment on above:Pelvic pain in female Start: 01-18-2024 End: 76-74-6647osxhkvszlhXCLIT FAZIONot AvailableStart: 01-18-2024 End: 91-55-4679Lhaapr flowsheetCorey Irma DO Work Phone: NOHM BCP OBStart: 01-18-2024 End: 28-38-7114Ghptyq flowsheetCorey Irma DO Work Phone: noms [facility] OBStart: 71-07-2448kvauuhkljdKshtydnwfjnNu Romeroity:[facility] Centertart: 09-08-2023 End: 38-13-3822vkefvybaytDBL RAMEYNot AvailableStart: 08-31-2023 End: 11-37-7224emynfjzavtCMQVA FAZIONot AvailableStart: 08-19-2023 End: 39-91-6157esflhxofkjYadje FazioFacility:[facility] Start: 07-20-2023 End: 91-09-0339wdvmbofwrsHezkk FaziSelect [facility] Work Phone: Start: 07-20-2023 End: 03-83-8662Rmcvpwie ReferredCorey Irma Work Phone: [facility]-LAB Path Spec Hardin HospStart: 07-06-2023 End: 27-43-5080Dxkwivtqv Result EncounterLola RICE Work Phone: noms External Department UnsolicitedStart: 07-06-2023 End: 52-97-7983Erikizpci Result EncounteroLla RICE Work Phone: noms External Department Unsolicited Procedures DateProcedureProcedure DetailPerforming ClinicianStart: 91-47-2037Clqpw dip stick/tablet rgnt non-auto w/o micrscpCorey Irma DO Work Phone: Start: 28-53-8079AN PELVIS W/ TRANSVAGINALCorey Irma DO Work Phone: Start: 61-22-3642ES PELVIS W/ TRANSVAGINALAmy Karla RICE Work Phone: Plan of Treatment DateCare ActivityDetailAuthorStart: 07-16-2025 End: 42-04-5761Gunvlrf encounter procedureNOMS BCP OBStart: 07-10-2024 End: 66-62-9123YM Breast - bilateral ScreeningBilateral screening mammogram Imaging Routine Breast cancer screening by mammogram Expected: 07/10/2024 (Approximate), Expires: 09/09/2025[facility] Work Phone: comment on above:Expected: 07/10/2024 (Approximate), Expires: 09/09/2025Start: 07-10-2024 End: 68-60-7257Hxixzff encounter procedureNOMS BCP OBComment on above:Arrived Start: 01-18-2024 End: 22-70-4775Yhxccej encounter lhckilbyw06/ 2:40 PM EST Office Visit [facility] [address] [place] [address] Wesley Solis, DO [address] [place] [address] ArrivedNOMS BCP OBComment on above:ArrivedStart: 01-18-2024 End: 69-35-6407WL for pregnancyUS PELVIS-TRANSVAG IF INDICATED Imaging Routine Pelvic pain in female Expected: 01/18/2024 (Approximate), Expires: 01/17/2025 [facility] Work Phone: comment on above:Expected: 01/18/2024 (Approximate), Expires: 01/17/2025THIN PREP TIS PAP AND HR HPV DNATHIN PREP TIS PAP AND HR HPV DNA Pathology and Cytology Routine Well woman exam with routine gynecological exam Ordered: 07/10/2024NOPR HealthcareComment on above:Ordered: 07/10/2024 Payers DatePayer CategoryPayerPolicy [id number] Health InsuranceCIGNA [id number] Health [id number] 2..840.1.241220.3.579.2.1259 [id number] 2.16.840.1.082305.3.57[id number] 2..840.1.937478.3.57[id number] 2..840.1.313105.3.57[id number] 2.16.840.1.69[id number] 2..840.1.062150.3.579.2.531 [id number] 2..840.1.2[id number] 2..840.1.119007.3.579.2.531 Social History DateTypeDetailFacilcherrington hospitalTobacc smoking status NHISUnknown if ever smokedElyria Memorial Hospital Work Phone: Start: 97-99-7055Skm Assigned At BirthFeCommunity Memorial HospitalTobacc smoking status NHISTobacco smoking consumption unknownJORDAN VALLEY [facility] HealthcareStart: 82-80-8499Myd assigned at birthNot on [facility] HealthcareGender identityNot on [facility] HospitalStart: 32-75-9435OmwEheqtj [facility] History of Present illness Narrative 07-10-2024 Note Date & YckxHvrcBiyorkmp64-70-4618 History of Present illness Narrative* Melody Coon, DANNY - 07/10/2024 8:30 AM EDT Reason for Appointment: Patient ID: Maria Fernanda Sheldon is a 39 y.o. female who presents for Well Women Visit Patient presents today for Annual Exam. MEDICATIONS No current outpatient medications ALLERGIES No Known Allergies PROBLEMS Active Ambulatory [...] Respiratory: Negative. Cardiovascular: Negative. Gastrointestinal: Negative. Genitourinary: Negative. Musculoskeletal: Negative. Skin: Negative. Neurological: Negative. All other systems reviewed and are negative. Hematological: Negative. Endocrine: Negative. Allergic/Immunologic: Negative. OBJECTIVE Objective: Physical Exam Constitutional: Appearance: Normal appearance. She is well-developed. Genitourinary: Vulva normal. Breasts: Breasts are soft. Right: Normal. Left: Normal. Cardiovascular: Rate and Rhythm: Normal rate and [...] nursing note reviewed. Exam conducted with a coal weigher present. Vitals: Estimated body mass index is 31.88 kg/m as calculated from the following: Height as of 08/31/23: 5' 11.5 . Weight as of this encounter: 231 lb 12.8 oz. BP: 120/70 No LMP recorded (within months). ASSESSMENT & PLAN ICD-10-CM 1. Well woman exam with routine gynecological exam Z01.419 THIN PREP TIS PAP AND HR HPV DNA POCT urinalysis dipstick manually resulted 2. Breast cancer screening by mammogram Z12.31 Bilateral screening mammogram Bilateral screening mammogram Annual: Patient presents today for an annual exam. Patient states she is doing well and has no complaints. Pap was obtained without difficulty and patient given mammogram order to have scheduled/obtained. Orders Placed This Encounter Procedures Bilateral screening mammogram POCT urinalysis dipstick manually resulted Follow Up: Patient is to return in one year for annual unless needed otherwise. Documented by Melody Coon LPN on behalf of: Wesley Solis DO documented in this encounterNOMS Healthcare History of Present illness Narrative 01-18-2024 Note Date & OoycKpzmRqhncygj81-60-0045 History of Present illness Narrative* Melody Coon LPN - 01/18/2024 2:40 PM EST Reason for Appointment: Patient ID: Maria Fernanda Sheldon is a 38 y.o. female who [...] nursing note reviewed. Exam conducted with a coal weigher present. Vitals: Estimated body mass index is [...] this time. Pt advised to keep track ofpain and if it times up mid cycle and could be mittleschmirtz. Pt given order for ultrasound to have obtained in 6 months. Pt to return for annual unless needed sooner. Documented by Melody Coon LPN on behalf of: Wesley Solis DO documented in this encounterNOPR Healthcare Evaluation note Note Date & TypeNoteFacilityEvaluation noteNo assessment information available [facility] Work Phone: Evaluation note Note Date & TypeNoteFacilityEvaluation note* Diagnosis Pelvic pain in female Unspecified symptom associated with female genital organs documented in this encounter [facility] Evaluation note Note Date & TypeNoteFacilityEvaluation note* Diagnosis Well woman exam with routine gynecological exam Routine gynecological examination Breast cancer screening by mammogram documented in this encounter [facility] Advance Directives Advance Directive Response Recorded Date/ Time Advance Directives No July 20 11:51am Summary Purpose Family History No Family History Records FoundNo Family History Records Found Additional Source Comments Care Teams (unrecognized sec tion and content) Team Status: Inactive Member Role Status Dates Wesley Velazquezzio Attending Provider Active Start: Rajan gonzalez 2023 End: July 20, 2023 Goals (unrecognized section and content) Goals may be documented in a n alternate section Reason for Visit (unrecogniz ed section and content) ReasonCommentsPelvic PainReasonCommentsWell Women Visit INFORMATION SOURCE (unrecogn ized section and content) DATE CREATED AUTHOR 01/26/2024 [facility] DATE CREATED AUTHOR AUTHOR'S ORGANRUFINA ATION 07/11/2024 [facility] EPIC FOR RECORDS PERTAINING TO PATIENTS [...] BE BASED ON THE PRIMARY CLINICAL RECORDS. [facility] [employer] provides no warranty or guarantee of the accuracy or completeness of information in this document.
== END 2024-12-31 08:10 | disposition home or self-care (01) ==
LOC: MAMMO 08:09
PROVIDERS: PCP Nurse Practitioner Family; Visit Provider Nurse Practitioner Family
DX: Z12.31 Encounter for screening mammogram for malignant neoplasm of breast (principal)
CPT/HCPCS: 77063; 77067